=== PATIENT | male | born 1975 | race Caucasian/White ===

== ENCOUNTER 2018-07-21 12:39 | Emergency (ER) | payer SELFPAY ==
--- NOTE | 2018-07-21 12:58 | ER ---
Nurse's Notes [facility] Name: Laura Hernandez Age: 43 yrs Sex: Male : 1975 Arrival Date: 07/21/2018 Time: 12:41 Bed 24 Private MD: Diagnosis: Periapical abscess without sinus Presentation: 07/21 12:43 Presenting complaint: Patient states: swelling to right jaw, pt states "the is a spot aa5 inside my mouth and it's been hurting for about 3 days". Transition of care: patient was not received from another setting of care. Onset of symptoms was June 2018. Risk Assessment: Do you want to hurt yourself or someone else? Patient reports no desire to harm self or others. Initial Sepsis Screen: Does the patient meet any 2 criteria? No. Patient's initial sepsis screen is negative. Does the patient have a suspected source of infection? No. Patient's initial sepsis screen is negative. Care prior to arrival: None. 12:43 Method Of Arrival: Ambulatory aa5 12:43 Acuity: MARIA LUZ 4 aa5 Historical: - Allergies: 12:45 Pepto-Bismol; aa5 - PMHx: 12:45 None; aa5 - PSHx: 12:45 Broken Jaw; aa5 - Immunization history:: Flu vaccine is not up to date. - Social history:: Smoking status: Patient uses tobacco products, smokes one-half pack cigarettes per day. - Ebola Screening: : No symptoms or risks identified at this time. Screenin:01 Abuse screen: Denies threats or abuse. Denies injuries from another. Nutritional aj screening: No deficits noted. Tuberculosis screening: No symptoms or risk factors identified. Fall Risk None identified. Assessment: 13:01 General: Appears in no apparent distress. comfortable, Behavior is calm, cooperative, aj appropriate for age. Pain: Complains of pain in mouth. Neuro: Level of Consciousness is awake, alert, obeys commands, Oriented to person, place, time, situation, Appropriate for age. Respiratory: Airway is patent Respiratory effort is even, unlabored, Respiratory pattern is regular, symmetrical. EENT: Reports pain in mouth. Derm: Skin is intact, is healthy with good turgor, Skin is pink, warm \\T\\ dry. normal. Vital Signs: 12:45 BP 119 / 80; Pulse 94; Resp 16 S; Temp 98.3(TE); Pulse Ox 99% on R/A; Weight 90.72 kg aa5 (R); Height 5 ft. 9 in. (175.26 cm) (R); Pain 9/10; 12:45 Body Mass Index 29.53 (90.72 kg, 175.26 cm) aa5 ED Course: 12:41 Patient arrived in ED. as 12:43 Arm band placed on. aa5 12:45 Triage completed. aa5 12:47 Edith Barkley, RN is Primary Nurse. aj 12:48 Cierra Roy FNP-C is PHCP. kb 12:48 Magnus Wolf MD is Attending Physician. kb 13:01 Patient has correct armband on for positive identification. aj 13:01 No provider procedures requiring assistance completed. Patient did not have IV access aj during this emergency room visit. Administered Medications: 13:04 Drug: Clindamycin 300 mg Route: PO; aj 13:05 Follow up: Response: Medication administered at discharge. aj 13:04 Drug: [place] 5 mg-325 mg 1 tabs Route: PO; aj 13:05 Follow up: Response: Medication administered at discharge. aj Outcome: 12:57 Discharge ordered by . kb 13:01 Discharged to home ambulatory, with friend. aj 13:01 Condition: good 13:01 Discharge instructions given to patient, Instructed on discharge instructions, follow up and referral plans. medication usage, Demonstrated understanding of instructions, follow-up care, medications, Prescriptions given X 2. 13:05 Patient left the ED. aj Signatures: Cierra Roy FNP-C FNP-Edith Bauman, RN Annemarie Tapia Audri, RN RN aa
--- NOTE | 2018-07-21 12:58 | EDPHYS ---
Physician Documentation [facility] Name: Laura Hernandez Age: 43 yrs Sex: Male : 1975 Arrival Date: 07/21/2018 Time: 12:41 Bed 24 Private MD: ED Physician Magnus Wolf HPI: 07/21 13:04 This 43 yrs old Male presents to ER via Ambulatory with complaints of Facial kb Swelling. 13:05 The patient presents with pain, redness, swelling. The problem is located in the lower kb right third molar. Onset: The symptoms/episode began/occurred 2 day(s) ago. Duration: The symptoms are continuous. Modifying factors: The symptoms are alleviated by nothing, the symptoms are aggravated by nothing. Associated signs and symptoms: Pertinent positives: pain, redness in area, swelling. Severity of symptoms: At their worst the symptoms were mild, moderate, in the emergency department the symptoms are unchanged. The patient has not experienced similar symptoms in the past. The patient has not recently seen a physician. Historical: - Allergies: 12:45 Pepto-Bismol; aa5 - PMHx: 12:45 None; aa5 - PSHx: 12:45 Broken Jaw; aa5 - Immunization history:: Flu vaccine is not up to date. - Social history:: Smoking status: Patient uses tobacco products, smokes one-half pack cigarettes per day. - Ebola Screening: : No symptoms or risks identified at this time. ROS: 13:03 Constitutional: Negative for fever, chills, and weight loss, Cardiovascular: Negative kb for chest pain, palpitations, and edema, Respiratory: Negative for shortness of breath, cough, wheezing, and pleuritic chest pain, Abdomen/GI: Negative for abdominal pain, nausea, vomiting, diarrhea, and constipation, MS/Extremity: Negative for injury and deformity, Skin: Negative for injury, rash, and discoloration, Neuro: Negative for headache, weakness, numbness, tingling, and seizure. 13:03 ENT: Positive for dental pain. Exam: 13:03 Constitutional: This is a well developed, well nourished patient who is awake, alert, kb and in no acute distress. Head/Face: Normocephalic, atraumatic. Chest/axilla: Normal chest wall appearance and motion. Nontender with no deformity. No lesions are appreciated. Cardiovascular: Regular rate and rhythm with a normal S1 and S2. No gallops, murmurs, or rubs. Normal PMI, no JVD. No pulse deficits. Respiratory: Lungs have equal breath sounds bilaterally, clear to auscultation and percussion. No rales, rhonchi or wheezes noted. No increased work of breathing, no retractions or nasal flaring. Abdomen/GI: Soft, non-tender, with normal bowel sounds. No distension or tympany. No guarding or rebound. No evidence of tenderness throughout. Skin: Warm, dry with normal turgor. Normal color with no rashes, no lesions, and no evidence of cellulitis. MS/ Extremity: Pulses equal, no cyanosis. Neurovascular intact. Full, normal range of motion. Neuro: Awake and alert, GCS 15, oriented to person, place, time, and situation. Cranial nerves II-XII grossly intact. Motor strength 5/5 in all extremities. Sensory grossly intact. Cerebellar exam normal. Normal gait. 13:03 ENT: Dental exam: abscess, that is mild, gum swelling, pain. Vital Signs: 12:45 BP 119 / 80; Pulse 94; Resp 16 S; Temp 98.3(TE); Pulse Ox 99% on R/A; Weight 90.72 kg aa5 (R); Height 5 ft. 9 in. (175.26 cm) (R); Pain 9/10; 12:45 Body Mass Index 29.53 (90.72 kg, 175.26 cm) aa5 MDM: 12:49 Patient medically screened. kb 13:04 Data reviewed: vital signs, nurses notes. Data interpreted: Pulse oximetry: on room air kb is 99 %. Interpretation: normal. Counseling: I had a detailed discussion with the patient and/or guardian regarding: the historical points, exam findings, and any diagnostic results supporting the discharge/admit diagnosis, the need for outpatient follow up, a dentist, to return to the emergency department if symptoms worsen or persist or if there are any questions or concerns that arise at home. Administered Medications: 13:04 Drug: Clindamycin 300 mg Route: PO; aj 13:05 Follow up: Response: Medication administered at discharge. aj 13:04 Drug: [place] 5 mg-325 mg 1 tabs Route: PO; aj 13:05 Follow up: Response: Medication administered at discharge. aj Disposition: 07/22 12:05 Co-signature as Attending Physician, Magnus LANGE I agree with the assessment and carlyle plan of care. Disposition: 07/21/18 12:57 Discharged to Home. Impression: Periapical abscess without sinus. - Condition is Stable. - Discharge Instructions: Dental Pain, [id number], Dental Abscess, [id number]. - Prescriptions for Clindamycin HCl 300 mg Oral Capsule - take 1 capsule by ORAL route every 6 hours for 10 days; 40 capsule. Diclofenac Sodium 75 mg Oral Tablet, Delayed Release (E.C.) - take 1 tablet by ORAL route 2 times per day As needed; 30 tablet. - Medication Reconciliation Form, Thank You Letter, Antibiotic Education, Prescription Opioid Use form. - Follow up: Emergency Department; When: As needed; Reason: Trouble breathing, Worsening of condition. Follow up: Private Physician; When: 2 - 3 days; Reason: Recheck today's complaints, Continuance of care, Re-evaluation by your physician. Signatures: Cierra Roy, REJI-C SEO COORDINATOR-Edith Bauman, Magnus Serra RN, MD MD cha Calderon, Audri, RN RN aa5 Corrections: (The following items were deleted from the chart) 07/21 13:05 12:57 07/21/2018 12:57 Discharged to Home. Impression: Periapical abscess without aj sinus. Condition is Stable. Forms are Medication Reconciliation Form, Thank You Letter, Antibiotic Education, Prescription Opioid Use. Follow up: Emergency Department; When: As needed; Reason: Trouble breathing, Worsening of condition. Follow up: Private Physician; When: 2 - 3 days; Reason: Recheck today's complaints, Continuance of care, Re-evaluation by your physician. kb
[2018-07-21] MEDS ORDERED: CLINDAMYCIN HCL 150 MG CAP ONE (13:10)
[2018-07-21] MEDS ORDERED: HYDROCODONE/APAP 5/325 MG TAB ONE (13:10)
== END 2018-07-21 13:05 | disposition home or self-care (01) ==
LOC: ER 12:39
DX: K04.7 Periapical abscess without sinus (principal); F17.210 Nicotine dependence, cigarettes, uncomplicated
CPT/HCPCS: 99283

== ENCOUNTER 2018-07-24 21:09 | Emergency (ER) | payer SELFPAY ==
--- NOTE | 2018-07-24 21:30 | EDPHYS ---
Physician Documentation [facility] Name: Laura Hernandez Age: 43 yrs Sex: Male : 1975 Arrival Date: 07/24/2018 Time: 21:10 Bed 20 Private MD: ED Physician Magnus Wolf HPI: 07/24 21:25 This 43 yrs old Male presents to ER via EMS with complaints of Toothache. jr8 21:25 The patient presents with broken tooth/teeth, pain, swelling. Onset: The jr8 symptoms/episode began/occurred acutely, 3 day(s) ago. Duration: The symptoms are continuous. Modifying factors: The symptoms are alleviated by nothing, the symptoms are aggravated by air, chewing, talking. Associated signs and symptoms: The patient has no apparent associated signs or symptoms. Severity of symptoms: At their worst the symptoms were moderate, in the emergency department the symptoms are unchanged. The patient has experienced a previous episode. The patient has not recently seen a physician. Patient seen two days ago for dental infection. Was arrested tonight and wanted EMS called for increased pain due to dental infection . Historical: - Allergies: 21:15 Pepto-Bismol; fc - Home Meds: 21:15 None [Active]; fc - PMHx: 21:15 None; fc - PSHx: 21:15 mouth surg; knee surg; leg surg; fc - Immunization history:: Last tetanus immunization: up to date. - Social history:: Smoking status: Patient uses tobacco products, smokes one-half pack cigarettes per day, Patient/guardian denies using alcohol, street drugs. - Ebola Screening: : Patient negative for fever greater than or equal to 101.5 degrees Fahrenheit, and additional compatible Ebola Virus Disease symptoms Patient denies exposure to infectious person Patient denies travel to an Ebola-affected area in the 21 days before illness onset. ROS: 21:25 Eyes: Negative for injury, pain, redness, and discharge, Neck: Negative for injury, jr8 pain, and swelling, Cardiovascular: Negative for chest pain, palpitations, and edema, Respiratory: Negative for shortness of breath, cough, wheezing, and pleuritic chest pain, Abdomen/GI: Negative for abdominal pain, nausea, vomiting, diarrhea, and constipation, Back: Negative for injury and pain, MS/Extremity: Negative for injury and deformity, Skin: Negative for injury, rash, and discoloration, Neuro: Negative for headache, weakness, numbness, tingling, and seizure. 21:25 ENT: Positive for dental pain, Gum pain Exam: 21:25 Eyes: Pupils equal round and reactive to light, extra-ocular motions intact. Lids and jr8 lashes normal. Conjunctiva and sclera are non-icteric and not injected. Cornea within normal limits. Periorbital areas with no swelling, redness, or edema. Neck: Trachea midline, no thyromegaly or masses palpated, and no cervical lymphadenopathy. Supple, full range of motion without nuchal rigidity, or vertebral point tenderness. No Meningismus. Cardiovascular: Regular rate and rhythm with a normal S1 and S2. No gallops, murmurs, or rubs. Normal PMI, no JVD. No pulse deficits. Respiratory: Lungs have equal breath sounds bilaterally, clear to auscultation and percussion. No rales, rhonchi or wheezes noted. No increased work of breathing, no retractions or nasal flaring. Abdomen/GI: Soft, non-tender, with normal bowel sounds. No distension or tympany. No guarding or rebound. No evidence of tenderness throughout. Back: No spinal tenderness. No costovertebral tenderness. Full range of motion. Skin: Warm, dry with normal turgor. Normal color with no rashes, no lesions, and no evidence of cellulitis. MS/ Extremity: Pulses equal, no cyanosis. Neurovascular intact. Full, normal range of motion. Neuro: Awake and alert, GCS 15, oriented to person, place, time, and situation. Cranial nerves II-XII grossly intact. Motor strength 5/5 in all extremities. Sensory grossly intact. Cerebellar exam normal. Normal gait. 21:25 ENT: Exam is negative for earache, ear discharge, TM abnormalities, nasal discharge, Mouth: Lips: moist, Oral mucosa: pink and intact, moist, Gums: pink, Tongue: is moist, abscess, is not appreciated, Posterior pharynx: Airway: patent, Tonsils: are normal in appearance, Uvula: midline, swelling, is not appreciated, erythema, is not appreciated, Dental exam: Patient has mild erythema with ulceration to gum line near 2nd molar. Broken second tooth present. Mild facial swelling adjacent to infection . Vital Signs: 21:06 BP 122 / 57; Pulse 95; Resp 18; Temp 98.2(O); Pulse Ox 99% on R/A; Weight 90.72 kg (R); fc Height 5 ft. 9 in. (175.26 cm) (R); Pain 5/10; 21:40 BP 121 / 65; Pulse 70; Resp 17; Pulse Ox 99% ; rr5 21:06 Body Mass Index 29.53 (90.72 kg, 175.26 cm) MDM: 21:24 Patient medically screened. jr8 21:25 Data reviewed: vital signs, nurses notes, and as a result, I will discharge patient. jr8 Data interpreted: Pulse oximetry: on room air is 99 %. Interpretation: normal. Counseling: I had a detailed discussion with the patient and/or guardian regarding: the historical points, exam findings, and any diagnostic results supporting the discharge/admit diagnosis, the need for outpatient follow up, a dentist, to return to the emergency department if symptoms worsen or persist or if there are any questions or concerns that arise at home. Administered Medications: 21:25 Drug: Clindamycin 600 mg {Note: right gluteus 300mg IM, left gluteus 300 mg IM .} rr5 Route: IM; Site: left gluteus; 21:46 Follow up: Response: Medication administered at discharge. rr5 21:26 Drug: TORadol - Ketorolac 15 mg Route: IM; Site: right deltoid; rr5 21:45 Follow up: Response: Medication administered at discharge. rr5 Disposition: 07/24/18 21:29 Discharged to Home. Impression: Periapical abscess without sinus. - Condition is Stable. - Discharge Instructions: Dental Abscess, Dental Pain. - Medication Reconciliation Form, Thank You Letter, Antibiotic Education, Prescription Opioid Use form. - Follow up: Private Physician; When: 2 - 3 days; Reason: Recheck today's complaints, Continuance of care, Re-evaluation by your physician. - Problem is new. - Symptoms have improved. - Notes: Continue ABX at home as prescribed the other day Addendum: 07/28/2018 10:57 Co-signature as Attending Physician, Magnus Wolf MD I agree with the assessment and c swanson plan of care. Signatures: Magnus Wolf MD MD cha Chretien, Felicia, RN RN Maurilio Morrow PA PA jr8 Haja Tristan RN RN rr5 Corrections: (The following items were deleted from the chart) 07/24 21:46 21:29 07/24/2018 21:29 Discharged to Home. Impression: Periapical abscess without rr5 sinus. Condition is Stable. Forms are Medication Reconciliation Form, Thank You Letter, Antibiotic Education, Prescription Opioid Use. Follow up: Private Physician; When: 2 - 3 days; Reason: Recheck today's complaints, Continuance of care, Re-evaluation by your physician. Problem is new. Symptoms have improved. jr8
--- NOTE | 2018-07-24 21:30 | ER ---
Nurse's Notes [facility] Name: Laura Hernandez Age: 43 yrs Sex: Male : 1975 Arrival Date: 07/24/2018 Time: 21:10 Bed 20 Private MD: Diagnosis: Periapical abscess without sinus Presentation: 07/24 21:06 Presenting complaint: Patient states: that he is having right sided facial pain and jaw fc pain. On antibiotics that he was given here last week. Transition of care: patient was not received from another setting of care. Onset of symptoms was July 14, 2018. Risk Assessment: Do you want to hurt yourself or someone else? Patient reports no desire to harm self or others. Initial Sepsis Screen: Does the patient meet any 2 criteria? HR > 90 bpm. No. Patient's initial sepsis screen is negative. Does the patient have a suspected source of infection? No. Patient's initial sepsis screen is negative. Care prior to arrival: None. 21:06 Method Of Arrival: EMS: [facility] 21:06 Acuity: MARIA LUZ 4 fc Historical: - Allergies: 21:15 Pepto-Bismol; fc - Home Meds: 21:15 None [Active]; fc - PMHx: 21:15 None; fc - PSHx: 21:15 mouth surg; knee surg; leg surg; fc - Immunization history:: Last tetanus immunization: up to date. - Social history:: Smoking status: Patient uses tobacco products, smokes one-half pack cigarettes per day, Patient/guardian denies using alcohol, street drugs. - Ebola Screening: : Patient negative for fever greater than or equal to 101.5 degrees Fahrenheit, and additional compatible Ebola Virus Disease symptoms Patient denies exposure to infectious person Patient denies travel to an Ebola-affected area in the 21 days before illness onset. Screenin:06 Abuse screen: Denies threats or abuse. Nutritional screening: No deficits noted. fc Tuberculosis screening: No symptoms or risk factors identified. Fall Risk None identified. Assessment: 21:10 General: Appears in no apparent distress. uncomfortable, Behavior is calm, cooperative, rr5 appropriate for age. 21:10 Pain: Complains of pain in right tooth Pain does not radiate. Pain radiates to right rr5 jaw Pain currently is 5 out of 10 on a pain scale. Quality of pain is described as aching, Pain began gradually, Is intermittent. Neuro: Level of Consciousness is awake, alert, obeys commands, Oriented to person, place, time, situation, Appropriate for age. Cardiovascular: Capillary refill < 3 seconds Patient's skin is warm and dry. Respiratory: Airway is patent Respiratory effort is even, unlabored, Respiratory pattern is regular, symmetrical. GI: No signs and/or symptoms were reported involving the gastrointestinal system. : No signs and/or symptoms were reported regarding the genitourinary system. EENT: abscess right tooth. Reports pain in right tooth. Derm: No signs and/or symptoms reported regarding the dermatologic system. Musculoskeletal: Capillary refill < 3 seconds, Range of motion: intact in all extremities. 21:41 Reassessment: Patient appears in no apparent distress at this time. Patient is alert, rr5 oriented x 3, equal unlabored respirations, skin warm/dry/pink. discharge instruction given without complaints made. escorted by MCKAYLA. Vital Signs: 21:06 BP 122 / 57; Pulse 95; Resp 18; Temp 98.2(O); Pulse Ox 99% on R/A; Weight 90.72 kg (R); fc Height 5 ft. 9 in. (175.26 cm) (R); Pain 5/10; 21:40 BP 121 / 65; Pulse 70; Resp 17; Pulse Ox 99% ; rr5 21:06 Body Mass Index 29.53 (90.72 kg, 175.26 cm) ED Course: 21:06 Arm band placed on Patient placed in an exam room, on a stretcher. fc 21:06 Patient has correct armband on for positive identification. Placed in gown. Bed in low fc position. 21:06 No provider procedures requiring assistance completed. fc 21:10 Patient arrived in ED. fc 21:12 Triage completed. fc 21:24 Maurilio Li PA is PHCP. jr8 21:24 Magnus Wolf MD is Attending Physician. jr8 21:30 Haja Tristan RN is Primary Nurse. rr5 21:44 Patient did not have IV access during this emergency room visit. IV discontinued. rr5 Administered Medications: 21:25 Drug: Clindamycin 600 mg {Note: right gluteus 300mg IM, left gluteus 300 mg IM .} rr5 Route: IM; Site: left gluteus; 21:46 Follow up: Response: Medication administered at discharge. rr5 21:26 Drug: TORadol - Ketorolac 15 mg Route: IM; Site: right deltoid; rr5 21:45 Follow up: Response: Medication administered at discharge. rr5 Outcome: 21:29 Discharge ordered by MD. damon 21:44 Discharged to Law Enforcement rr5 21:44 Condition: stable 21:44 Discharge instructions given to patient, Instructed on discharge instructions, follow up and referral plans. Demonstrated understanding of instructions, follow-up care. 21:46 Patient left the ED. rr5 Signatures: Juanita Damon RN RN Maurilio Li PA PA jr8 Haja Tristan RN RN rr5
[2018-07-24] MEDS ORDERED: KETOROLAC 30 MG/ML INJ ONE (21:38)
[2018-07-24] MEDS ORDERED: CLINDAMYCIN IV 150 MG/ML (4 mL) VIAL ONE (21:40)
== END 2018-07-24 21:46 | disposition home or self-care (01) ==
LOC: ER 21:09
DX: K04.7 Periapical abscess without sinus (principal); F17.210 Nicotine dependence, cigarettes, uncomplicated; Z88.8 Allergy status to other drugs, medicaments and biological substances
CPT/HCPCS: 96372; 99283; S0077

== ENCOUNTER 2018-10-11 05:10 | Emergency (ER) | payer SELFPAY ==
--- NOTE | 2018-10-11 06:33 | ER ---
Nurse's Notes [facility] Name: Laura Hernandez Age: 43 yrs Sex: Male : 1975 Arrival Date: 10/11/2018 Time: 05:12 Bed 18 Private MD: Diagnosis: Fracture of ramus of mandible Presentation: 10/11 05:24 Presenting complaint: Patient states: Patient states they were roughhousing with their eb1 brother and felt like they had broken their jaw. Patient says their mouth feels off center when they bite down. Care prior to arrival: None. Mechanism of Injury: Patient states they were roughhousing with their brother, and is not aware of how his jaw became injured. 05:24 Acuity: MARIA LUZ 4 eb1 05:24 Method Of Arrival: Ambulatory eb1 05:43 Transition of care: patient was not received from another setting of care. Onset of eb1 symptoms was October 11, 2018. Initial Sepsis Screen: Does the patient meet any 2 criteria? No. Patient's initial sepsis screen is negative. Does the patient have a suspected source of infection? No. Patient's initial sepsis screen is negative. 05:43 Risk Assessment: Do you want to hurt yourself or someone else? Patient reports no eb1 desire to harm self or others. Triage Assessment: 05:33 General: Appears in no apparent distress. comfortable, slender, well groomed, well eb1 developed, well nourished, Behavior is calm, cooperative, appropriate for age. Pain: Complains of pain in left jaw Pain does not radiate. Pain currently is 5 out of 10 on a pain scale. EENT: No deficits noted. No signs and/or symptoms were reported regarding the EENT system. Neuro: No deficits noted. Cardiovascular: No deficits noted. Respiratory: No deficits noted. GI: No deficits noted. No signs and/or symptoms were reported involving the gastrointestinal system. : No deficits noted. No signs and/or symptoms were reported regarding the genitourinary system. Derm: No deficits noted. No signs and/or symptoms reported regarding the dermatologic system. Musculoskeletal: No deficits noted. No signs and/or symptoms reported regarding the musculoskeletal system. Historical: - Allergies: 05:39 Pepto-Bismol; eb1 - Home Meds: 05:39 None [Active]; eb1 - PMHx: 05:39 None; eb1 - PSHx: 05:39 jaw sx; eb1 - Immunization history:: Adult Immunizations up to date. - Social history:: Smoking status: Patient uses tobacco products, smokes one-half pack cigarettes per day. - Ebola Screening: : Patient negative for fever greater than or equal to 101.5 degrees Fahrenheit, and additional compatible Ebola Virus Disease symptoms Patient denies exposure to infectious person Patient denies travel to an Ebola-affected area in the 21 days before illness onset. Screenin:40 Abuse screen: Denies threats or abuse. Denies injuries from another. Nutritional eb1 screening: No deficits noted. Tuberculosis screening: No symptoms or risk factors identified. Fall Risk None identified. Assessment: 05:35 General: Appears in no apparent distress. comfortable, slender, well groomed, well eb1 developed, well nourished, Behavior is calm, cooperative, appropriate for age. Pain: Complains of pain in left jaw Pain does not radiate. Pain currently is 5 out of 10 on a pain scale. Neuro: No deficits noted. Cardiovascular: No deficits noted. Respiratory: No deficits noted. GI: No deficits noted. No signs and/or symptoms were reported involving the gastrointestinal system. : No deficits noted. No signs and/or symptoms were reported regarding the genitourinary system. EENT: No deficits noted. No signs and/or symptoms were reported regarding the EENT system. Derm: No deficits noted. No signs and/or symptoms reported regarding the dermatologic system. Musculoskeletal: No deficits noted. No signs and/or symptoms reported regarding the musculoskeletal system. 07:20 Reassessment: Called Dr. Ocampo (radiologist) about x-ray reading result, left voice aa5 mail. . 07:30 Reassessment: Pt sitting up in bed watching TV. Awaiting EMS for transfer, pt notified aa5 of wait time, pt verbalized understanding. Swelling noted to left jaw, pt rates pain 4/10 on a pain scale. . 08:04 Reassessment: Patient is alert, oriented x 3, equal unlabored respirations, skin aa5 warm/dry/pink. Vital Signs: 05:34 BP 151 / 98; Pulse 105; Resp 18; Temp 98.6(O); Pulse Ox 97% ; Pain 4/10; eb1 06:22 BP 143 / 89; Pulse 101; Resp 20; Temp 98.8(O); Pulse Ox 100% ; Pain 7/10; eb1 07:40 BP 145 / 85; Pulse 99; Resp 18 S; Temp 98.0(TE); Pulse Ox 100% on R/A; Pain 4/10; aa5 ED Course: 05:12 Patient arrived in ED. ds1 05:31 Yo Bustamante MD is Attending Physician. gs 05:31 Triage completed. eb1 05:42 Arm band placed on left wrist. eb1 05:43 Patient has correct armband on for positive identification. Bed in low position. eb1 06:01 Mandible (<4 Views) XRAY In Process Unspecified. EDMS 06:14 initiated a transfer with Aline at the [facility] transfer center. mw2 06:19 connected the [facility] doctor sales correspondent for [facility] with Dr. Bustamante for patient transfer mw2 consultation. 06:[address] ED doctor Dr. Grady sales correspondent for [facility] with Dr. Bustamante for mw2 patient transfer consultation. 06:28 administrative approval given by Aline Gusman from the [facility] transfer center/ Patient has mw2 been accepted to [facility] ER by Johnathan Mcgee. Report to be called to [phone]. 07:00 Report received from THIAGO Cabrales. aa5 07:04 Lisa Muñoz, RN is Primary Nurse. aa5 08:04 No provider procedures requiring assistance completed. Patient transferred, IV remains aa5 in place. 08:23 Primary Nurse role handed off by Lisa Muñoz, RN aa5 Administered Medications: 06:28 Drug: Lortab Liquid 15 ml Route: PO; eb1 06:48 Follow up: Response: Pain is decreased eb1 Outcome: 06:33 ER care complete, transfer ordered by . gs 08:32 Patient left the ED. aa5 08:32 Transferred by ground EMS to [facility], Transfer form completed. X-rays sent w/ patient. Note: Report given to Emiliano with [facility] 08:32 Condition: stable 08:32 Instructed on the need for transfer, Demonstrated understanding of instructions. 08:33 Patient left the ED. aa5 Signatures: Dispatcher [employer] EDIN Odilia Marcos ds1 Lisa Muñoz RN RN aa5 Yo Bustamante MD MD Gricelda Freedman mw2 Samra Billings RN RN eb1 Corrections: (The following items were deleted from the chart) 08:32 08:04 Transferred by ground EMS to [facility], Transfer form aa5 completed. X-rays sent w/ patient. Note: Report given to Helen with [facility] aa5 08:04 Condition: stable aa5 aa5 08:04 Instructed on the need for transfer, Demonstrated understanding of instructions, aa5 aa5 08:06 Patient left the ED. aa5 aa5
--- NOTE | 2018-10-11 06:33 | EDPHYS ---
Physician Documentation [facility] Name: Laura Hernandez Age: 43 yrs Sex: Male : 1975 Arrival Date: 10/11/2018 Time: 05:12 Bed 18 Private MD: ED Physician Yo Bustamante HPI: 10/11 05:58 This 43 yrs old Male presents to ER via Ambulatory with complaints of Jaw gs Injury. 05:58 The patient presents with pain. The problem is located in the face. The problem is gs located in the left jaw. Onset: The symptoms/episode began/occurred acutely, this morning. Duration: The symptoms are continuous. Modifying factors: the symptoms are aggravated by chewing. Associated signs and symptoms: Pertinent negatives: dysphagia. Severity of symptoms: At their worst the symptoms were moderate, in the emergency department the symptoms are unchanged. The patient has experienced a previous episode. says got hit in jaw. Historical: - Allergies: 05:39 Pepto-Bismol; eb1 - Home Meds: 05:39 None [Active]; eb1 - PMHx: 05:39 None; eb1 - PSHx: 05:39 jaw sx; eb1 - Immunization history:: Adult Immunizations up to date. - Social history:: Smoking status: Patient uses tobacco products, smokes one-half pack cigarettes per day. - Ebola Screening: : Patient negative for fever greater than or equal to 101.5 degrees Fahrenheit, and additional compatible Ebola Virus Disease symptoms Patient denies exposure to infectious person Patient denies travel to an Ebola-affected area in the 21 days before illness onset. ROS: 05:58 All other systems are negative. gs Exam: 05:58 Head/Face: Normocephalic, atraumatic. Eyes: Pupils equal round and reactive to light, gs extra-ocular motions intact. Lids and lashes normal. Conjunctiva and sclera are non-icteric and not injected. Cornea within normal limits. Periorbital areas with no swelling, redness, or edema. Neck: Trachea midline, no thyromegaly or masses palpated, and no cervical lymphadenopathy. Supple, full range of motion without nuchal rigidity, or vertebral point tenderness. No Meningismus. Chest/axilla: Normal chest wall appearance and motion. Nontender with no deformity. No lesions are appreciated. Cardiovascular: Regular rate and rhythm with a normal S1 and S2. No gallops, murmurs, or rubs. Normal PMI, no JVD. No pulse deficits. Respiratory: Lungs have equal breath sounds bilaterally, clear to auscultation and percussion. No rales, rhonchi or wheezes noted. No increased work of breathing, no retractions or nasal flaring. Abdomen/GI: Soft, non-tender, with normal bowel sounds. No distension or tympany. No guarding or rebound. No evidence of tenderness throughout. Back: No spinal tenderness. No costovertebral tenderness. Full range of motion. Skin: Warm, dry with normal turgor. Normal color with no rashes, no lesions, and no evidence of cellulitis. MS/ Extremity: Pulses equal, no cyanosis. Neurovascular intact. Full, normal range of motion. Neuro: Awake and alert, GCS 15, oriented to person, place, time, and situation. Cranial nerves II-XII grossly intact. Motor strength 5/5 in all extremities. Sensory grossly intact. Cerebellar exam normal. Normal gait. 05:58 Constitutional: The patient appears alert, awake. 05:58 ENT: Dental exam: pain, that is moderate, specifically in the left jaw, mild trismus. Vital Signs: 05:34 BP 151 / 98; Pulse 105; Resp 18; Temp 98.6(O); Pulse Ox 97% ; Pain 4/10; eb1 06:22 BP 143 / 89; Pulse 101; Resp 20; Temp 98.8(O); Pulse Ox 100% ; Pain 7/10; eb1 07:40 BP 145 / 85; Pulse 99; Resp 18 S; Temp 98.0(TE); Pulse Ox 100% on R/A; Pain 4/10; aa5 MDM: 05:31 Patient medically screened. 10/11 05:36 Order name: Mandible (<4 Views) XRAY 10/11 06:27 Order name: NPO; Complete Time: 06:31 Administered Medications: 06:28 Drug: Lortab Liquid 15 ml Route: PO; eb1 06:48 Follow up: Response: Pain is decreased eb1 Disposition: 10/11/18 06:33 Transfer ordered to [facility]. Diagnosis is Fracture of ramus of mandible. - Reason for transfer: Higher level of care. - Accepting physician is fantasma. - Condition is Stable. - Problem is new. - Symptoms have improved. Signatures: Dispatcher [employer] EDLisa Dowling, RN RN aa5 Yo Bustamante MD MD gs Basinger, Emily RN RN eb1 Corrections: (The following items were deleted from the chart) 08:06 06:33 10/11/2018 06:33 Transfer ordered to [facility]. Diagnosis is Fracture of aa5 ramus of mandible. Reason for transfer: Higher level of care. Accepting physician is fantasma. Condition is Stable. Problem is new. Symptoms have improved. 08:33 08:06 10/11/2018 06:33 Transfer ordered to [facility]. Diagnosis is Fracture of aa5 ramus of mandible. Reason for transfer: Higher level of care. Accepting physician is fantasma. Condition is Stable. Problem is new. Symptoms have improved. aa5
[2018-10-11] MEDS ORDERED: HYDROCOD 2.5mg-ACETAMIN 108mg/5mL Soln ONE (06:40)
--- NOTE | 2018-10-11 07:30 | RAD REPORT ---
EXAM DESCRIPTION: RAD - Mandible <4 Views - 10/11/2018 6:00 am CLINICAL HISTORY: Mandible pain, trauma COMPARISON: None. TECHNIQUE: AP Walker's, right and left axial lateral and PA views were obtained. FINDINGS: Right-sided mandible is intact with normally positioned mandibular condyle. Left mandibula r condyles is displaced anteriorly. There is an oblique fracture of the left-side mandible approximat lea midportion of the ramus. There is 1-2 mm of lateral displacement of the superior fracture fragmen t. Hardware is in place from prior mandible fracture repair. IMPRESSION: Left mandibular ramus fracture with anterior displacement of the condyle onto the articu lar eminence.
== END 2018-10-11 08:33 | disposition short-term general hospital (02) ==
LOC: ER 05:10
DX: S02.642A Fracture of ramus of left mandible, initial encounter for closed fracture (principal); F17.210 Nicotine dependence, cigarettes, uncomplicated; W50.0XXA Accidental hit or strike by another person, initial encounter; Y93.89 Activity, other specified; Y92.9 Unspecified place or not applicable
CPT/HCPCS: 70100; 99285

== ENCOUNTER 2020-05-23 06:42 | Emergency (ER) | payer SELFPAY ==
--- OUTSIDE RECORDS SUMMARY | 2020-05-23 06:45 | XMS REPORT | Continuity of Care Document ---
:1975 Author Organization [facility] t Address [address] [place] [address] Care Team Providers Name Role Phone Danilo LANGE Attending Clinician Problems This patient has no known problems. Allergies, Adverse Reactions, Alerts This patient has no known allergies or adverse reactions. Medications This patient has no known medications. Procedures This patient has no known procedures. Encounters Start End Encounter Admission Attending Care Care Encounter Source Date/Time Date/Time Type Type Clinicians Facility Department ID 2018-11-11 2018-12-03 Office Santos Carrasco [facility] [id number] 16:10:03 12:11:53 Visit SPECIALTY [id number] CARE [id number] CENTER AT [id number] [address] [place] [address] Results This patient has no known results.
--- NOTE | 2020-05-23 08:28 | EDPHYS ---
Physician Documentation [facility] Name: Laura Hernandez Age: 45 yrs Sex: Male : 1975 Arrival Date: 05/23/2020 Time: 06:47 Bed 25 Private MD: Magnus Taylor HPI: 05/23 08:20 This 45 yrs old Male presents to ER via Ambulatory with complaints of Gum carlyle Pain. 08:20 This 45 yrs old Male presents to ER via Ambulatory with complaints of Gum carlyle Pain. 08:20 The patient or guardian reports pain, swelling. The complaints affect the left jaw. carlyle Onset: The symptoms/episode began/occurred 3 day(s) ago. Associated signs and symptoms: The patient has no apparent associated signs or symptoms. Severity of symptoms: At their worst the symptoms were moderate. The patient has not experienced similar symptoms in the past. Historical: - Allergies: 07:05 Pepto-Bismol; bb - Home Meds: 07:05 None [Active]; bb - PMHx: 07:05 None; bb - PSHx: 07:05 None; bb - Immunization history:: Adult Immunizations up to date. - Social history:: Smoking status: Patient reports the use of cigarette tobacco products, smokes one-half pack cigarettes per day. ROS: 08:20 Constitutional: Negative for fever, chills, and weight loss, Eyes: Negative for injury, carlyle pain, redness, and discharge, Neck: Negative for injury, pain, and swelling, Cardiovascular: Negative for chest pain, palpitations, and edema, Respiratory: Negative for shortness of breath, cough, wheezing, and pleuritic chest pain, Abdomen/GI: Negative for abdominal pain, nausea, vomiting, diarrhea, and constipation, Back: Negative for injury and pain, : Negative for injury, bleeding, discharge, and swelling, MS/Extremity: Negative for injury and deformity, Skin: Negative for injury, rash, and discoloration, Neuro: Negative for headache, weakness, numbness, tingling, and seizure, Psych: Negative for depression, anxiety, suicide ideation, homicidal ideation, and hallucinations, Allergy/Immunology: Negative for hives, rash, and allergies, Endocrine: Negative for neck swelling, polydipsia, polyuria, polyphagia, and marked weight changes, Hematologic/Lymphatic: Negative for swollen nodes, abnormal bleeding, and unusual bruising. 08:20 ENT: Positive for Teeth pain Exam: 08:20 Constitutional: This is a well developed, well nourished patient who is awake, alert, carlyle and in no acute distress. Eyes: Pupils equal round and reactive to light, extra-ocular motions intact. Lids and lashes normal. Conjunctiva and sclera are non-icteric and not injected. Cornea within normal limits. Periorbital areas with no swelling, redness, or edema. Neck: Trachea midline, no thyromegaly or masses palpated, and no cervical lymphadenopathy. Supple, full range of motion without nuchal rigidity, or vertebral point tenderness. No Meningismus. Chest/axilla: Normal chest wall appearance and motion. Nontender with no deformity. No lesions are appreciated. Cardiovascular: Regular rate and rhythm with a normal S1 and S2. No gallops, murmurs, or rubs. Normal PMI, no JVD. No pulse deficits. Respiratory: Lungs have equal breath sounds bilaterally, clear to auscultation and percussion. No rales, rhonchi or wheezes noted. No increased work of breathing, no retractions or nasal flaring. Abdomen/GI: Soft, non-tender, with normal bowel sounds. No distension or tympany. No guarding or rebound. No evidence of tenderness throughout. Back: No spinal tenderness. No costovertebral tenderness. Full range of motion. Male : Normal genitalia with no discharge or lesions. Skin: Warm, dry with normal turgor. Normal color with no rashes, no lesions, and no evidence of cellulitis. MS/ Extremity: Pulses equal, no cyanosis. Neurovascular intact. Full, normal range of motion. Neuro: Awake and alert, GCS 15, oriented to person, place, time, and situation. Cranial nerves II-XII grossly intact. Motor strength 5/5 in all extremities. Sensory grossly intact. Cerebellar exam normal. Normal gait. Psych: Awake, alert, with orientation to person, place and time. Behavior, mood, and affect are within normal limits. 08:20 Head/face: Noted is swelling, tenderness, that is mild, of the left jaw. 08:20 ENT: Mouth: Gums: noted to have cellulitis, reddened, swollen, on the lower left first molar, Dental exam: dental caries, fractured teeth are noted, gum swelling, that is moderate, specifically in the lower left first molar (#19), pain. Vital Signs: 07:03 BP 152 / 96; Pulse 83; Resp 16 S; Temp 98(O); Pulse Ox 100% on R/A; Weight 90.72 kg bb (R); Height 5 ft. 9 in. (175.26 cm) (R); Pain 8/10; 08:52 BP 143 / 93; Pulse 82; Resp 17; Pulse Ox 100% on R/A; tw2 07:03 Body Mass Index 29.53 (90.72 kg, 175.26 cm) bb Straughn Coma Score: 08:20 Eye Response: spontaneous(4). Verbal Response: oriented(5). Motor Response: obeys carlyle commands(6). Total: 15. 08:24 Eye Response: spontaneous(4). Verbal Response: oriented(5). Motor Response: obeys carlyle commands(6). Total: 15. MDM: 07:25 Patient medically screened. carlyle 08:24 Data reviewed: vital signs, nurses notes. Data interpreted: physical director: rate is 83 carlyle beats/min, rhythm is regular, Pulse oximetry: on room air. Counseling: I had a detailed discussion with the patient and/or guardian regarding: the historical points, exam findings, and any diagnostic results supporting the discharge/admit diagnosis, the need for outpatient follow up, for definitive care, a dentist, an oral maxilofacial specialist. Administered Medications: 08:31 Drug: Amoxicillin 500 mg Route: PO; tw2 08:51 Follow up: Response: No adverse reaction tw2 08:31 Drug: Viscous Lidocaine Liquid (4 %) 5 ml Route: Mucous Membrane; tw2 08:31 Drug: Berne 10 mg-325 mg 1 tabs {Note: RASS 0.} Route: PO; tw2 08:51 Follow up: Response: No adverse reaction; Pain is unchanged, physician notified; RASS: tw2 Alert and Calm (0) Disposition: 05/23/20 08:27 Discharged to Home. Impression: Dental caries - PAIN, Gingivitis and periodontal diseases. - Condition is Stable. - Discharge Instructions: Dental Pain, Dental Pain, [id number]. - Prescriptions for Lidocaine Viscous - Apply to affected area 5 milliliter by ORAL route 5 times per day; 60 milliliter. Amoxicillin 500 mg Oral Capsule - take 1 capsule by ORAL route every 8 hours for 10 days; 30 tablet. Ibuprofen 600 mg Oral Tablet - take 1 tablet by ORAL route every 6 hours As needed take with food; 30 tablet. - Medication Reconciliation Form, Thank You Letter, Antibiotic Education, Prescription Opioid Use, Work release form form. - Follow up: Private Physician; When: 2 - 3 days; Reason: Recheck today's complaints, Continuance of care, Re-evaluation by your physician. Follow up: Steve Jauregui DDS; When: Tomorrow; Reason: Recheck today's complaints, Re-evaluation by your physician. - Problem is new. - Symptoms have improved. Signatures: Magnus Wolf MD MD cha Ballard, Brenda RN RN bb Tianna Hartman RN RN tw2 Corrections: (The following items were deleted from the chart) 08:52 08:27 05/23/2020 08:27 Discharged to Home. Impression: Dental caries - PAIN; Gingivitis tw2 and periodontal diseases. Condition is Stable. Forms are Work release form, Medication Reconciliation Form, Thank You Letter, Antibiotic Education, Prescription Opioid Use. Follow up: Private Physician; When: 2 - 3 days; Reason: Recheck today's complaints, Continuance of care, Re-evaluation by your physician. Follow up: Steve Jauregui; When: Tomorrow; Reason: Recheck today's complaints, Re-evaluation by your physician. Problem is new. Symptoms have improved. carlyle
--- NOTE | 2020-05-23 08:28 | ER ---
Nurse's Notes [facility] Name: Laura Hernandez Age: 45 yrs Sex: Male : 1975 Arrival Date: 05/23/2020 Time: 06:47 Bed 25 Private MD: Diagnosis: Dental caries-PAIN;Gingivitis and periodontal diseases Presentation: 05/23 07:03 Chief complaint: Patient states: he is having left lower jaw/tooth pain x 2 days now bb radiating down his neck. Coronavirus screen: At this time, the client does not indicate any symptoms associated with coronavirus-19. Ebola Screen: No symptoms or risks identified at this time. Initial Sepsis Screen: Does the patient meet any 2 criteria? No. Patient's initial sepsis screen is negative. Does the patient have a suspected source of infection? No. Patient's initial sepsis screen is negative. Risk Assessment: Do you want to hurt yourself or someone else? Patient reports no desire to harm self or others. Onset of symptoms was May 21, 2020. 07:03 Method Of Arrival: Ambulatory bb 07:03 Acuity: MARIA LUZ 4 bb Triage Assessment: 07:05 General: Appears in no apparent distress. Behavior is calm, cooperative. Pain: bb Complains of pain in left lower jaw Pain currently is 8 out of 10 on a pain scale. Neuro: Level of Consciousness is awake, alert, obeys commands, Oriented to person, place, time, situation. Historical: - Allergies: 07:05 Pepto-Bismol; bb - Home Meds: 07:05 None [Active]; bb - PMHx: 07:05 None; bb - PSHx: 07:05 None; bb - Immunization history:: Adult Immunizations up to date. - Social history:: Smoking status: Patient reports the use of cigarette tobacco products, smokes one-half pack cigarettes per day. Screenin:06 Abuse screen: Denies threats or abuse. Nutritional screening: No deficits noted. tw2 Tuberculosis screening: No symptoms or risk factors identified. Fall Risk None identified. Assessment: 08:52 Reassessment: Patient appears in no apparent distress at this time. No changes from tw2 previously documented assessment. Patient and/or family updated on plan of care and expected duration. Pain level reassessed. Patient is alert, oriented x 3, equal unlabored respirations, skin warm/dry/pink. Vital Signs: 07:03 BP 152 / 96; Pulse 83; Resp 16 S; Temp 98(O); Pulse Ox 100% on R/A; Weight 90.72 kg bb (R); Height 5 ft. 9 in. (175.26 cm) (R); Pain 8/10; 08:52 BP 143 / 93; Pulse 82; Resp 17; Pulse Ox 100% on R/A; tw2 07:03 Body Mass Index 29.53 (90.72 kg, 175.26 cm) Covel Coma Score: 08:20 Eye Response: spontaneous(4). Verbal Response: oriented(5). Motor Response: obeys carlyle commands(6). Total: 15. 08:24 Eye Response: spontaneous(4). Verbal Response: oriented(5). Motor Response: obeys carlyle commands(6). Total: 15. ED Course: 06:47 Patient arrived in ED. cl3 06:55 Bed in low position. Call light in reach. Pulse ox on. NIBP on. tw2 07:04 Triage completed. bb 07:05 Arm band placed on Patient placed in an exam room, on a stretcher, on pulse oximetry. bb 07:06 Tianna Hartman, THIAGO is Primary Nurse. tw2 07:25 Magnus Wolf MD is Attending Physician. carlyle 08:25 Steve Jauregui DDS is Referral Physician. carlyle 08:52 No provider procedures requiring assistance completed. Patient did not have IV access tw2 during this emergency room visit. Administered Medications: 08:31 Drug: Amoxicillin 500 mg Route: PO; tw2 08:51 Follow up: Response: No adverse reaction tw2 08:31 Drug: Viscous Lidocaine Liquid (4 %) 5 ml Route: Mucous Membrane; tw2 08:31 Drug: Highland 10 mg-325 mg 1 tabs {Note: RASS 0.} Route: PO; tw2 08:51 Follow up: Response: No adverse reaction; Pain is unchanged, physician notified; RASS: tw2 Alert and Calm (0) Outcome: 08:27 Discharge ordered by . carlyle 08:52 Discharged to home ambulatory. tw2 08:52 Condition: stable 08:52 Discharge instructions given to patient, Instructed on discharge instructions, follow up and referral plans. medication usage, Demonstrated understanding of instructions, follow-up care, medications, Prescriptions given X 3. 08:52 Patient left the ED. tw2 Signatures: Magnus Wolf MD MD cha Ballard, Brenda RN RN bb Tianna Hartman RN RN tw2 Shahid Shukla cl3
[2020-05-23] MEDS ORDERED: LIDOCAINE VISCOUS 2% SOLN 15 ML UDC ONE (08:46)
[2020-05-23] MEDS ORDERED: HYDROCODONE/APAP 10/325 TAB ONE (08:46)
[2020-05-23] MEDS ORDERED: AMOXICILLIN TRIHYDR 250 MG CAP ONE (08:46)
[2020-05-23 09:57] VITALS: TEMP 98; O2SAT 100
[2020-05-23 09:58] VITALS: BP 143/93
== END 2020-05-23 08:52 | disposition home or self-care (01) ==
LOC: ER 06:42
DX: K05.10 Chronic gingivitis, plaque induced (principal); F17.210 Nicotine dependence, cigarettes, uncomplicated; Z88.8 Allergy status to other drugs, medicaments and biological substances
CPT/HCPCS: 99283

== ENCOUNTER 2020-10-28 06:07 | Emergency (ER) | payer SELFPAY ==
--- OUTSIDE RECORDS SUMMARY | 2020-10-28 06:09 | XMS REPORT | Continuity of Care Document ---
:1975 Author Organization [facility] t Address [address] [place] [address] [address]. [address] [place] [address] Care Team Providers Name Role Phone Danilo [...] Department ID 2018-11-11 2018-12-03 Office Santos Carrasco [facility] [id number] 16:10:03 12:11:53 Visit SPECIALTY [id number] CARE [id number] CENTER AT [phone] ÁLVARO Deal [facility] Results This patient has no known results.
[2020-10-28 07:06] LABS: Absolute Lymphocytes (CBC) 1.8 K/uL (0.7-4.9); Basophils % 0.3 % (0-1.3); Hematocrit 42.9 % (39.6-49.0); Lymphocytes % 12.4 % (15.3-44.8); MPV 7.2 fL (7.6-11.3); RBC Red Blood Cell Count 5.06 M/uL (4.33-5.43)
[2020-10-28] MEDS ORDERED: ONDANSETRON 4 MG/2 ML VIAL ONE ×2 (07:18→08:54)
[2020-10-28] MEDS ORDERED: KETOROLAC 30 MG/ML INJ ONE (07:18)
[2020-10-28] MEDS ORDERED: NA CHLORIDE 0.9% 500 ML ONE (07:18)
[2020-10-28 07:22] LABS: Bilirubin Direct 0.2 mg/dL (0-0.2); Bilirubin Total 0.7 mg/dL (0.2-1.0); Potassium 3.4 mmol/L (3.5-5.1); Protein, Total 7.5 g/dL (6.4-8.2)
--- NOTE | 2020-10-28 07:22 | RAD REPORT ---
EXAM DESCRIPTION: CT - Stone Protocol - 10/28/2020 7:07 am CLINICAL HISTORY: FLANK PAIN COMPARISON: No comparisons FINDINGS: No acute findings within the lower chest. Circumferential thickening of the distal esophag us may reflect esophagitis. Heart size is normal. No pericardial effusion. No focal liver lesions. The gallbladder is unremarkable. Adrenal glands unremarkable. The pancreas is unremarkable. Mild left-sided hydronephrosis secondary to a 3 millimeter stone in the left distal ur eter. Normal appendix. No bowel obstruction. Bladder is decompressed. Fat containing inguinal hernias . No retroperitoneal lymphadenopathy. IMPRESSION: Mild left-sided hydronephrosis secondary to a 3 millimeter stone in the left distal uret er.
--- NOTE | 2020-10-28 08:15 | ER ---
Nurse's Notes [facility] Name: Laura Hernandez Age: 45 yrs Sex: Male : 1975 Arrival Date: 10/28/2020 Time: 06:09 Bed 7 Private MD: Diagnosis: Hydronephrosis with renal and ureteral calculous obstruction Presentation: 10/28 06:48 Chief complaint: Patient states: he started having severe left flank pain about an hour bb ago the pain radiates to his groin and is 10/10. Coronavirus screen: At this time, the client does not indicate any symptoms associated with coronavirus-19. Ebola Screen: No symptoms or risks identified at this time. Initial Sepsis Screen: Does the patient meet any 2 criteria? No. Patient's initial sepsis screen is negative. Does the patient have a suspected source of infection? No. Patient's initial sepsis screen is negative. Risk Assessment: Do you want to hurt yourself or someone else? Patient reports no desire to harm self or others. Onset of symptoms was October 28, 2020. 06:48 Method Of Arrival: Ambulatory bb 06:48 Acuity: MARIA LUZ 3 bb Historical: - Allergies: 06:50 Pepto-Bismol; bb - Home Meds: 06:50 None [Active]; bb - PMHx: 06:50 None; bb - PSHx: 06:50 jaw surgery; bb - Immunization history:: Adult Immunizations up to date, Client reports having NOT received the Covid vaccine. - Social history:: Smoking status: Patient reports the use of cigarette tobacco products, smokes one-half pack cigarettes per day, Patient/guardian denies using alcohol, street drugs. Screenin:01 Abuse screen: Denies threats or abuse. Nutritional screening: No deficits noted. ea Tuberculosis screening: No symptoms or risk factors identified. Fall Risk None identified. Assessment: 07:00 General: Appears uncomfortable, Behavior is restless. Pain: Complains of pain in ea pelvis. Neuro: Level of Consciousness is awake, alert, obeys commands, Oriented to person, place, time. Cardiovascular: Patient's skin is warm and dry. Respiratory: Reports Airway is patent Respiratory effort is even, unlabored, Respiratory pattern is regular, symmetrical. GI: Abdomen is flat. Derm: Skin is pink, warm \T\ dry. 08:37 Reassessment: Patient appears in no apparent distress at this time. Patient and/or ph family updated on plan of care and expected duration. Pain level reassessed. Patient is alert, oriented x 3, equal unlabored respirations, skin warm/dry/pink. Pt requesting pain medication prior to d/c, ERP notified, see MAR, will monitor pt after administration of IV narcotics. Vital Signs: 06:48 BP 145 / 102; Pulse 85; Resp 20 S; Temp 97.6(O); Pulse Ox 99% on R/A; Weight 90.72 kg bb (R); Height 5 ft. 9 in. (175.26 cm) (R); Pain 10/10; 07:30 BP 142 / 95; Pulse 84; Resp 18; Pulse Ox 100% on R/A; ph 08:37 BP 137 / 89; Pulse 82; Resp 18; Temp 97.9; Pulse Ox 99% on R/A; ph 09:05 BP 139 / 91; Pulse 81; Resp 19; Temp 97.9; Pulse Ox 98% on R/A; ph 06:48 Body Mass Index 29.53 (90.72 kg, 175.26 cm) bb ED Course: 06:09 Patient arrived in ED. wm 06:48 [facility]. jr8 06:48 Alberto Salazar MD is Attending Physician. jr8 06:50 Triage completed. bb 06:50 Arm band placed on Patient placed in an exam room, on a stretcher, on pulse oximetry. bb 07:01 Patient has correct armband on for positive identification. Bed in low position. Call ea light in reach. Side rails up X2. 07:01 Inserted saline lock: 20 gauge in right antecubital area, using aseptic technique. ea Blood collected. 07:07 CT Stone Protocol In Process Unspecified. EDMS 07:15 Sue Howard, THIAGO is Primary Nurse. ph 08:14 Jozef Collado MD is Referral Physician. jr8 08:39 No provider procedures requiring assistance completed. ph 09:04 IV discontinued, intact, bleeding controlled, No redness/swelling at site. Pressure ph dressing applied. Administered Medications: 06:59 Drug: Ketorolac 15 mg Route: IVP; Site: right antecubital; ea 07:19 Follow up: Response: No adverse reaction ph 06:59 Drug: Zofran (Ondansetron) 4 mg Route: IVP; Site: right antecubital; ea 07:19 Follow up: Response: No adverse reaction ph 07:00 Drug: NS 0.9% 500 ml Route: IV; Rate: bolus; Site: right antecubital; ea 09:04 Follow up: Response: No adverse reaction; IV Status: Completed infusion; IV Intake: ph 500ml 08:35 Drug: morphine 4 mg Route: IVP; Site: right antecubital; ph 09:05 Follow up: Response: No adverse reaction; Pain is decreased; RASS: Alert and Calm (0) ph Intake: 09:04 IV: 500ml; Total: 500ml. ph Outcome: 08:14 Discharge ordered by MD. damon 09:04 Discharged to home ambulatory. ph 09:04 Condition: good 09:04 Discharge instructions given to patient, Instructed on discharge instructions, follow up and referral plans. medication usage, Demonstrated understanding of instructions, follow-up care, medications, Prescriptions given X 3. 09:06 Patient left the ED. ph Signatures: Dispatcher [employer] EDMS Charley Irizarry RN RN bb Roszak, Josh, PA PA jrSue Glasgow RN RN ph Antunez, Elena, RN RN ea Marsh, Wendy wm Corrections: (The following items were deleted from the chart) 09:04 09:04 Response: No adverse reaction; Pain is decreased; RASS: Alert and Calm (0); IV ph Status: Completed infusion; IV Intake: 500ml ph
--- NOTE | 2020-10-28 08:15 | EDPHYS ---
Physician Documentation [facility] Name: Laura Hernandez Age: 45 yrs Sex: Male : 1975 Arrival Date: 10/28/2020 Time: 06:09 Bed 7 Private MD: ED Physician Alberto Salazar HPI: 10/28 07:35 This 45 yrs old Male presents to ER via Ambulatory with complaints of jr8 Possible Kidney Stone. 07:35 The patient complains of pain in the left flank. The pain radiates to the abdomen. jr8 Onset: The symptoms/episode began/occurred acutely, today. Modifying factors: The symptoms are alleviated by nothing. the symptoms are aggravated by movement, palpation/percussion. Associated signs and symptoms: The patient has no apparent associated signs or symptoms. Severity of pain: At its worst the pain was moderate in the emergency department the pain is unchanged. The patient has not experienced similar symptoms in the past. The patient has not recently seen a physician. Patient stated that he woke up this morning with sudden onset left flank pain radiating to the lower abdomen and left testicle. Denies trauma.. Historical: - Allergies: 06:50 Pepto-Bismol; bb - Home Meds: 06:50 None [Active]; bb - PMHx: 06:50 None; bb - PSHx: 06:50 jaw surgery; bb - Immunization history:: Adult Immunizations up to date, Client reports having NOT received the Covid vaccine. - Social history:: Smoking status: Patient reports the use of cigarette tobacco products, smokes one-half pack cigarettes per day, Patient/guardian denies using alcohol, street drugs. ROS: 07:35 Eyes: Negative for injury, pain, redness, and discharge, ENT: Negative for injury, jr8 pain, and discharge, Neck: Negative for injury, pain, and swelling, Cardiovascular: Negative for chest pain, palpitations, and edema, Respiratory: Negative for shortness of breath, cough, wheezing, and pleuritic chest pain, MS/Extremity: Negative for injury and deformity, Skin: Negative for injury, rash, and discoloration, Neuro: Negative for headache, weakness, numbness, tingling, and seizure. 07:35 Abdomen/GI: Positive for abdominal pain. 07:35 Back: Positive for flank pain, on the left. Exam: 07:35 Cardiovascular: Regular rate and rhythm with a normal S1 and S2. No gallops, murmurs, jr8 or rubs. Normal PMI, no JVD. No pulse deficits. Respiratory: Lungs have equal breath sounds bilaterally, clear to auscultation and percussion. No rales, rhonchi or wheezes noted. No increased work of breathing, no retractions or nasal flaring. Skin: Warm, dry with normal turgor. Normal color with no rashes, no lesions, and no evidence of cellulitis. MS/ Extremity: Pulses equal, no cyanosis. Neurovascular intact. Full, normal range of motion. Neuro: Awake and alert, GCS 15, oriented to person, place, time, and situation. Cranial nerves II-XII grossly intact. Motor strength 5/5 in all extremities. Sensory grossly intact. Cerebellar exam normal. Normal gait. 07:35 Constitutional: The patient appears alert, awake, in obvious pain, uncomfortable. 07:35 Abdomen/GI: Inspection: abdomen appears normal, Bowel sounds: active, all quadrants, Palpation: soft, in all quadrants, moderate abdominal tenderness, in the anterior aspect of left lateral abdomen and left lower quadrant, mass, is not appreciated, rebound tenderness, is not appreciated, voluntary guarding, is not appreciated, involuntary guarding, is not appreciated, no appreciated organomegaly, Indicators: McBurney's point is not tender, Dowling's sign is negative, Rovsing's sign is negative, Liver: tenderness, is not appreciated. 07:35 Back: ROM is normal, normal spinal alignment noted, CVA tenderness, that is mild, is noted on the left, vertebral tenderness, is not appreciated, muscle spasm, is not present. Vital Signs: 06:48 BP 145 / 102; Pulse 85; Resp 20 S; Temp 97.6(O); Pulse Ox 99% on R/A; Weight 90.72 kg bb (R); Height 5 ft. 9 in. (175.26 cm) (R); Pain 10/10; 07:30 BP 142 / 95; Pulse 84; Resp 18; Pulse Ox 100% on R/A; ph 08:37 BP 137 / 89; Pulse 82; Resp 18; Temp 97.9; Pulse Ox 99% on R/A; ph 09:05 BP 139 / 91; Pulse 81; Resp 19; Temp 97.9; Pulse Ox 98% on R/A; ph 06:48 Body Mass Index 29.53 (90.72 kg, 175.26 cm) bb MDM: 06:48 Patient medically screened. jr8 08:13 Data reviewed: vital signs, nurses notes, lab test result(s), radiologic studies, CT jr8 scan. Data interpreted: Pulse oximetry: on room air is 99 %. Interpretation: normal. Counseling: I had a detailed discussion with the patient and/or guardian regarding: the historical points, exam findings, and any diagnostic results supporting the discharge/admit diagnosis, lab results, radiology results, the need for outpatient follow up, a urologist, to return to the emergency department if symptoms worsen or persist or if there are any questions or concerns that arise at home. Response to treatment: the patient's symptoms have markedly improved after treatment. ED course: Unable to urinate. Pain markedly improved. No increase in renal function. No fever, otherwise hemodynamically stable. Return precautions given. Otherwise will follow up with urology.. 10/28 06:49 Order name: Basic Metabolic Panel; Complete Time: 07:10/28 06:49 Order name: CBC with Diff; Complete Time: 07:10/28 06:49 Order name: Hepatic Function; Complete Time: 10/28 06:49 Order name: Lipase; Complete Time: 07:10/28 06:49 Order name: CT Stone Protocol; Complete Time: 07:10/28 06:49 Order name: IV Saline Lock; Complete Time: 0659 10/28 06:49 Order name: Labs collected and sent; Complete Time: 06: Administered Medications: 06:59 Drug: Ketorolac 15 mg Route: IVP; Site: right antecubital; ea 07:19 Follow up: Response: No adverse reaction ph 06:59 Drug: Zofran (Ondansetron) 4 mg Route: IVP; Site: right antecubital; ea 07:19 Follow up: Response: No adverse reaction ph 07:00 Drug: NS 0.9% 500 ml Route: IV; Rate: bolus; Site: right antecubital; ea 09:04 Follow up: Response: No adverse reaction; IV Status: Completed infusion; IV Intake: ph 500ml 08:35 Drug: morphine 4 mg Route: IVP; Site: right antecubital; ph 09:05 Follow up: Response: No adverse reaction; Pain is decreased; RASS: Alert and Calm (0) ph Disposition Summary: 10/28/20 08:14 Discharge Ordered Location: Home jr8 Problem: new jr8 Symptoms: have improved jr8 Condition: Stable jr8 Diagnosis - Hydronephrosis with renal and ureteral calculous obstruction jr8 Followup: jr8 - With: Jozef Collado MD - When: 5 - 6 days - Reason: Recheck today's complaints, Continuance of care, Re-evaluation by your physician Discharge Instructions: - Discharge Summary Sheet jr8 - Kidney Stones jr8 - Hydronephrosis jr8 Forms: - Medication Reconciliation Form jr8 - Thank You Letter jr8 - Antibiotic Education jr8 - Prescription Opioid Use jr8 Prescriptions: - acetaminophen-codeine 300-15 mg Oral tablet - take 2 tablet by ORAL route every 6 hours As needed as needed; 20 tablet; jr8 Refills: 0, Product Selection Permitted - tamsulosin 0.4 mg Oral capsule - take 1 capsule by ORAL route Every night; 7 capsule; Refills: 0, Product jr8 Selection Permitted - Zofran 4 mg Oral Tablet - take 1 tablet by ORAL route every 12 hours As needed; 20 tablet; Refills: 0, jr8 Product Selection Permitted Addendum: 10/29/2020 19:01 Co-signature as Attending Physician, Alberto mccarty Signatures: Dispatcher [employer] Alberto Shannon MD MD pkl Ballard, Brenda RN RN Maurilio Oneal PA PA jr8 Sue Howard RN RN Maria L Canales RN RN chepe
[2020-10-28] MEDS ORDERED: MORPHINE 4 MG/ML SYR ONE (08:54)
[2020-10-28 09:18] VITALS: TEMP 97.9
[2020-10-28 09:19] VITALS: BP 139/91; O2SAT 98
== END 2020-10-28 09:06 | disposition home or self-care (01) ==
LOC: ER 06:07
DX: N13.2 Hydronephrosis with renal and ureteral calculous obstruction (principal); F17.210 Nicotine dependence, cigarettes, uncomplicated; Z88.8 Allergy status to other drugs, medicaments and biological substances
CPT/HCPCS: 36415; 74176; 76377; 80048; 80076; 83690; 85025; 96361; 96374; 96375; 99284; J2405; J7040

== ENCOUNTER 2021-11-29 14:01 | Emergency (ER) | payer SELFPAY ==
--- OUTSIDE RECORDS SUMMARY | 2021-11-29 14:04 | XMS REPORT | Continuity of Care Document ---
:1975 Author Organization [facility] t Address [address] [place] [address] Care Team Providers Name Role Phone Santos Carrasco MD Attending Clinician Hollie Valdovinos DO Attending Clinician Johnathan Grady MD Attending Clinician Payers Payer Name Policy Type Policy Number Effective Date Expiration Date S ource Problems Condition Condition Condition Status Onset Resolution Last Treating Co mments Source Name Details Category Date Date Treatment Clinician Date Mandible Mandible Disease Active Unive rs fracture fracture 10-11 ity of 00:00: [place] 00 Medical Branch Closed Closed Disease Active Overview: Univer s fracture fracture 10-11 Added ity of of left of left 00:00: automatic [place] side of side of 00 ally from Medic al mandible, mandible, request Bra [facility] unspecifie unspecifie for d d surgery mandibular mandibular [id number] site, site, initial initial encounter encounter Allergies, Adverse Reactions, Alerts Allergy Allergy Status Severity Reaction(s) Onset Inactive Treating Comm ents Source Name Type Date Date Clinician Deedee Kang Active Other - See Break out Univers Subsalic ty to comments 10-11 in welps ity of ylate adverse 00:00: [place] reaction 00 Medical s Branch Social History Social Habit Start Date Stop Date Quantity Comments Source Alcohol intake [facility] History [facility] Alcohol [facility] Std Drinks Medical Branch History [facility] Alcohol [facility] Binge [facility] Sex Assigned At [facility] Medical Branch Cigarette pack-years 2018-11-11 2018-11-11 [facility] 00:00:00 00:00:00 Medical Branch History SDOH Alcohol 2018-11-11 2018-11-11 1 [facility] Frequency 00:00:00 00:00:00 Medical Branch Cigarettes smoked 2018-11-11 2018-11-11 [facility] current (pack per 00:00:00 00:00:00 Medical Branch day) - Reported Smoking Status Start Date Stop Date Source Current every day smoker 2018-11-11 00:00:00 [facility] Medical Branch Medications Ordered Filled Start Stop Current Ordering Indication Dosage Frequency Signature Comments Components Source Medication Medication Date Date Medication? Clinician (SIG) Name Name chlorhexidi 2019- No 15mL Unive rs ne 11-11 ity of (PERIDEX) 23:00: 22:17 [place] 0.12 % 00 :00 Medical mouthwash Branch 15 mL chlorhexidi 2019- No 15mL 15 mL, Uni vers ne 11-11 Oral ity of (PERIDEX) 23:00: 22:17 ([place] 0.12 % 00 :00 Spit Out), Medical mouthwash ONCE, 1 Branch 15 mL dose, 11/11/18 at 1800, Routine chlorhexidi 2019- No 15mL Unive rs ne 11-11 ity of (PERIDEX) 23:00: 22:17 [place] 0.12 % 00 :00 Medical mouthwash Branch 15 mL chlorhexidi 2019- No 15mL 15 mL, Uni vers ne 11-11 Oral ity of (PERIDEX) 23:00: 22:17 ([place] 0.12 % 00 :00 Spit Out), Medical mouthwash ONCE, 1 Branch 15 mL dose, 11/11/18 at 1800, Routine chlorhexidi 2019- No 15mL Unive rs ne 11-11 ity of (PERIDEX) 23:00: 22:17 [place] 0.12 % 00 :00 Medical mouthwash Branch 15 mL chlorhexidi 2018- 2019- No 15mL 15 mL, Uni vers ne 11-11 Oral ity of (PERIDEX) 23:00: 22:17 ([place] 0.12 % 00 :00 Spit Out), Medical mouthwash ONCE, 1 Branch 15 mL dose, 11/11/18 at 1800, Routine chlorhexidi 2018-0 Yes [id number] 15mL [place] [facility] ne 8-14 spit out ity of (PERIDEX) 00:00: 15 mL 2 [place] 0.12 % 00 (two) Medical mouthwash times Branch daily. chlorhexidi 2018- Yes [id number] 15mL [place] [facility] ne 8-14 spit out ity of (PERIDEX) 00:00: 15 mL 2 [place] 0.12 % 00 (two) Medical mouthwash times Branch daily. chlorhexidi Yes [id number] 15mL [place] [facility] ne 8-14 spit out ity of (PERIDEX) 00:00: 15 mL 2 [place] 0.12 % 00 (two) Medical mouthwash times Branch daily. traMADol 2019- No 50mg 50 mg, Univer s (ULTRAM) 11-09 Oral, ity of tablet 50 07:15: 19:14 ONCE, 1 [place] mg 00 :00 dose, [facility] 11/09/18 at Branch 0215, Routine HYDROcodone Yes [id number] 15mL Take 15 mL Univers -acetaminop 7-20 by mouth ity of hen 7.5-325 00:00: every 4 [place] as mg/15 mL 00 (four) Medical solution hours as Branch needed for Pain (scale 7-10). HYDROcodone 2018- Yes [id number] 15mL Take 15 mL Univers -acetaminop 7-20 by mouth ity of hen 7.5-325 00:00: every 4 [place] as mg/15 mL 00 (four) Medical solution hours as Branch needed for Pain (scale 7-10). HYDROcodone 2018-0 Yes [id number] 15mL Take 15 mL Univers -acetaminop 7-20 by mouth ity of hen 7.5-325 00:00: every 4 [place] as mg/15 mL 00 (four) Medical solution hours as Branch needed for Pain (scale 7-10). HYDROcodone 2018-0 Yes [id number] 15mL Take 15 mL Univers -acetaminop 7-20 by mouth ity of hen 7.5-325 00:00: every 4 [place] as mg/15 mL 00 (four) Medical solution hours as Branch needed for Pain (scale 7-10). HYDROcodone 2019-0 Yes [id number] 15mL Take 15 mL Univers -acetaminop 7-20 by mouth ity of hen 7.5-325 00:00: every 4 [place] as mg/15 mL 00 (four) Medical solution hours as Branch needed for Pain (scale 7-10). HYDROcodone 2019-0 Yes [id number] 15mL Take 15 mL Univers -acetaminop 7-20 by mouth ity of hen 7.5-325 00:00: every 4 [place] as mg/15 mL 00 (four) Medical solution hours as Branch needed for Pain (scale 7-10). ondansetron 2019-0 Yes [id number] 4mg Take 1 Univers (ZOFRAN 7-16 tablet by ity of ODT) 4 mg 00:00: mouth [place] disintegrat 00 every 8 Medic al ing tablet (eight) Branch hours as needed for Nausea and Vomiting (N/V). chlorhexidi 2019-0 Yes [id number] 15mL [place] [facility] ne 0.12 % 7-16 spit out ity of mouthwash 00:00: 15 mL 3 [place] 00 (three) Medical times Branch daily. docusate 2019-0 Yes [id number] 100mg Take 1 U nivers 100 mg 7-16 capsule by ity of capsule 00:00: mouth [place] 00 daily. Medical Branch ondansetron 2019-0 Yes [id number] 4mg Take 1 Univers (ZOFRAN 7-16 tablet by ity of ODT) 4 mg 00:00: mouth [place] disintegrat 00 every 8 Medic al ing tablet (eight) Branch hours as needed for Nausea and Vomiting (N/V). chlorhexidi 2019-0 Yes [id number] 15mL [place] [facility] Univers ne 0.12 % 7-16 spit out ity of mouthwash 00:00: 15 mL 3 [place] 00 (three) Medical times Branch daily. docusate 2019-0 Yes [id number] 100mg Take 1 U nivers 100 mg 7-16 capsule by ity of capsule 00:00: mouth [place] 00 daily. Medical Branch ondansetron 2019-0 Yes [id number] 4mg Take 1 Univers (ZOFRAN 7-16 tablet by ity of ODT) 4 mg 00:00: mouth [place] disintegrat 00 every 8 Medic al ing tablet (eight) Branch hours as needed for Nausea and Vomiting (N/V). chlorhexidi 2019-0 Yes [id number] 15mL [place] [facility] ne 0.12 % 7-16 spit out ity of mouthwash 00:00: 15 mL 3 [place] 00 (three) Medical times Branch daily. docusate 2019-0 Yes [id number] 100mg Take 1 U nivers 100 mg 7-16 capsule by ity of capsule 00:00: mouth [place] 00 daily. Medical Branch ondansetron 2019-0 Yes [id number] 4mg Take 1 Univers (ZOFRAN 7-16 tablet by ity of ODT) 4 mg 00:00: mouth [place] disintegrat 00 every 8 Medic al ing tablet (eight) Branch hours as needed for Nausea and Vomiting (N/V). chlorhexidi 2019-0 Yes [id number] 15mL [place] [facility] ne 0.12 % 7-16 spit out ity of mouthwash 00:00: 15 mL 3 [place] 00 (three) Medical times Branch daily. docusate 2019-0 Yes [id number] 100mg Take 1 U nivers 100 mg 7-16 capsule by ity of capsule 00:00: mouth [place] 00 daily. Medical Branch ondansetron 2019-0 Yes [id number] 4mg Take 1 Univers (ZOFRAN 7-16 tablet by ity of ODT) 4 mg 00:00: mouth [place] disintegrat 00 every 8 Medic al ing tablet (eight) Branch hours as needed for Nausea and Vomiting (N/V). chlorhexidi 2019-0 Yes [id number] 15mL [place] [facility] Univers ne 0.12 % 7-16 spit out ity of mouthwash 00:00: 15 mL 3 [place] 00 (three) Medical times Branch daily. docusate 2019-0 Yes [id number] 100mg Take 1 U nivers 100 mg 7-16 capsule by ity of capsule 00:00: mouth [place] 00 daily. Medical Branch ondansetron 2019-0 Yes [id number] 4mg Take 1 Univers (ZOFRAN 7-16 tablet by ity of ODT) 4 mg 00:00: mouth [place] disintegrat 00 every 8 Medic al ing tablet (eight) Branch hours as needed for Nausea and Vomiting (N/V). chlorhexidi 2019-0 Yes [id number] 15mL [place] [facility] ne 0.12 % 7-16 spit out ity of mouthwash 00:00: 15 mL 3 [place] 00 (three) Medical times Branch daily. docusate 2019-0 Yes [id number] 100mg Take 1 U nivers 100 mg 7-16 capsule by ity of capsule 00:00: mouth [place] 00 daily. Medical Branch Vital Signs Vital Name Observation Time Observation Value Comments Source Systolic blood 2018-11-11 21:23:00 123 mm[Hg] Univer sity of pressure [facility] Branch Diastolic blood 2018-11-11 21:23:00 78 mm[Hg] Unive rsity of pressure [facility] Branch Heart rate 2018-11-11 21:23:00 86 /min Universi ty of [facility] Body temperature 2018-11-11 21:23:00 36.17 Patricia [facility] ersity of [facility] Body height 2018-11-11 21:23:00 175.3 cm Universi ty of [facility] Branch Body weight 2018-11-11 21:23:00 84.369 kg Universi ty of [facility] Branch BMI 2018-11-11 21:23:00 27.47 kg/m2 Universi ty of [facility] Branch Systolic blood 2018-11-11 21:23:00 123 mm[Hg] Univer sity of [facility] Branch Diastolic blood 2018-11-11 21:23:00 78 mm[Hg] Unive rsity of [facility] Branch Heart rate 2018-11-11 21:23:00 86 /min Universi ty of [facility] Body temperature 2018-11-11 21:23:00 36.17 Patricia [facility] ersity of [facility] Branch Body height 2018-11-11 21:23:00 175.3 cm Universi ty of [facility] Body weight 2018-11-11 21:23:00 84.369 kg Universi ty of [facility] Branch BMI 2018-11-11 21:23:00 27.47 kg/m2 Universi ty of [facility] Branch Systolic blood 2018-11-09 06:00:00 124 mm[Hg] Univer sity of pressure [facility] Branch Diastolic blood 2018-11-09 06:00:00 86 mm[Hg] Unive rsity of pressure [facility] Branch Heart rate 2018-11-09 06:00:00 84 /min [facility] Respiratory rate 2018-11-09 06:00:00 16 /min [facility] Oxygen saturation in 2018-11-09 06:00:00 96 /min [facility] Arterial blood by [facility] Pulse oximetry [place] Body temperature 2018-11-09 04:59:00 36.56 Patricia [facility] Body height 2018-11-09 04:58:00 175.3 cm [facility] Body weight 2018-11-09 04:58:00 85.276 kg [facility] BMI 2018-11-09 04:58:00 27.76 kg/m2 [facility] Procedures This patient has no known procedures. Encounters Start End Encounter Admission Attending Care Care Encounter Source Date/Time Date/Time Type Type Clinicians Facility Department ID 2018-11-11 2018-12-03 Office Santos Carrasco [id number] 16:10:03 12:11:53 Visit SPECIALTY [id number] CARE [id number] CENTER AT [id number] [address] 2018-11-11 2018-12-03 Office Santos Carrasco [id number] [facility] 16:10:03 12:11:53 Visit SPECIALTY [id number] it[id number] [place] [phone] [address] [place] [address] 2018-11-09 2018-11-09 Emergency Hollie Valdovinos TRAUMA [id number] Univers 00:04:08 01:21:00 Hollie Valdovinos CENTER [id number] [id number] [place] [id number] [facility] [address] [place] 2018-11-02 2018-11-02 Telephone Santos Carrasco [id number] Univers 00:00:00 00:00:00 SPECIALTY [id number] ity [place] C[place] [id number] [place] AT [id number] [address] 2018-10-31 2018-10-31 Telephone TOREY Grady [id number] Univers 00:00:00 00:00:00 Johnathan Benitez SPECIALTY [id number] ity of CARE [id number] [facility] AT [phone] [address] Results This patient has no known results.
[2021-11-29 14:36] LABS: Absolute Lymphocytes (CBC) 1.2 K/uL (0.7-4.9); Hematocrit 46.1 % (39.6-49.0); Lymphocytes % 11.4 % (15.3-44.8); MCV 87.4 fL (80-100); MPV 7.6 fL (7.6-11.3); RBC Red Blood Cell Count 5.27 M/uL (4.33-5.43)
[2021-11-29 14:53] LABS: SARS-CoV-2 Antigen Rapid Res Negative (Negative)
[2021-11-29 14:54] LABS: Potassium 3.5 mmol/L (3.5-5.1); Troponin High Sensitivity 5.5 pg/mL (<58.9)
--- NOTE | 2021-11-29 15:29 | RAD REPORT ---
EXAM DESCRIPTION: RAD - Chest Single View - 11/29/2021 3:17 pm CLINICAL HISTORY: CHEST PAIN Chest pain. COMPARISON: No comparisons FINDINGS: Portable technique limits examination quality. The lungs are grossly clear. The heart is normal in size. No displaced fractures. IMPRESSION: No acute intrathoracic process suspected.
--- NOTE | 2021-11-29 15:31 | RAD REPORT ---
EXAM DESCRIPTION: US - Scrotum Testicles - 11/29/2021 3:07 pm CLINICAL HISTORY: Right testicle mass Pain and swelling COMPARISON: No comparisons FINDINGS: The right testicle 3.4 x 3.0 x 2.3 cm. No intratesticular masses or evidence of testicular torsion. The left testicle 2.9 x 2.9 x 2.9 cm.. No intratesticular masses or evidence of testicular torsion. The right epididymis appears enlarged and is significantly heterogenous. Increased blood flow also li fatimah present. Small bilateral hydroceles. IMPRESSION: No intratesticular mass or evidence of testicular torsion. Significantly enlarged right epididymis with increased blood flow may indicate epididymitis.
[2021-11-29] MEDS ORDERED: LIDOCAINE 1% MPF 2 ML AMPULE ONE (16:01)
[2021-11-29] MEDS ORDERED: CEFTRIAXONE 500 MG/VIAL ONE (16:01)
--- NOTE | 2021-11-29 16:02 | EDPHYS ---
Physician Documentation [facility] Name: Laura Hernandez Age: 46 yrs Sex: Male : 1975 Arrival Date: 11/29/2021 Time: 14:05 Bed 3 Private MD: ED Physician Kendall Steen HPI: 11/29 15:44 This 46 yrs old Male presents to ER via EMS with complaints of Chest Pain. ms3 15:44 46-year-old male with no past medical history presents for chest pain that he rates ms3 4/10 and describes it as burning. Patient states the pain began earlier today. Patient denies nausea, vomiting, shortness of breath. Patient endorses diaphoresis. Patient denies alleviating or inciting factors.. Historical: - Allergies: 14:06 Pepto-Bismol; vg1 - Home Meds: 14:06 None [Active]; vg1 - PMHx: 14:06 None; vg1 - PSHx: 14:06 jaw surgery; vg1 - Immunization history:: Client reports having NOT received the Covid vaccine. - Social history:: Smoking status: Patient reports the use of cigarette tobacco products, smokes one-half pack cigarettes per day. ROS: 15:44 Constitutional: Negative for fever, and chills. ENT: Negative for injury, pain, and ms3 discharge, Neck: Negative for injury, pain, and swelling. 15:44 Back: Negative for injury and pain, MS/Extremity: Negative for injury and deformity, Skin: Negative for injury, rash, and discoloration, Neuro: Negative for headache, weakness, numbness, tingling. Psych: Negative for depression, anxiety, suicide ideation, homicidal ideation, and hallucinations. 15:44 Cardiovascular: Positive for chest pain. 15:44 : Positive for testicular pain 15:44 All other systems are negative. Exam: 14:02 ECG was reviewed by the Attending Physician. ms3 15:44 Constitutional: This is a well developed, well nourished patient who is awake, alert, ms3 and in no acute distress. Head/Face: Normocephalic, atraumatic. Neck: Trachea midline, no cervical lymphadenopathy. Supple, full range of motion without nuchal rigidity, or vertebral point tenderness. No Meningismus. Chest/axilla: Normal chest wall appearance and motion. Nontender with no deformity. Cardiovascular: Regular rate and rhythm with a normal S1 and S2. No gallops, murmurs, or rubs. Normal PMI, no JVD. No pulse deficits. Respiratory: Lungs have equal breath sounds bilaterally, clear to auscultation and percussion. No rales, rhonchi or wheezes noted. No increased work of breathing, no retractions or nasal flaring. Abdomen/GI: Soft, non-tender, with normal bowel sounds. No distension or tympany. No guarding or rebound. No evidence of tenderness throughout. Back: No spinal tenderness. No costovertebral tenderness. Full range of motion. Skin: Warm, dry with normal turgor. Normal color with no rashes, no lesions, and no evidence of cellulitis. 15:44 : Male external genitalia: tenderness, of the right testicle is noted, of the epididymis area, Mass/Induration of epididymis. Vital Signs: 13:55 BP 153 / 104; Pulse 93; Resp 15; Temp 97.5(TE); Pulse Ox 99% on R/A; Weight 92.99 kg; vg1 Height 5 ft. 9 in. (175.26 cm); Pain 5/10; 15:17 BP 148 / 99; Pulse 97; Resp 15; Pulse Ox 99% on R/A; vg1 16:04 BP 150 / 97; Pulse 79; Resp 19; Pulse Ox 100% on R/A; em6 13:55 Body Mass Index 30.27 (92.99 kg, 175.26 cm) vg1 MDM: 14:18 Patient medically screened. ms3 15:44 Differential diagnosis: abnormal EKG, acute myocardial infarction, coronary artery ms3 disease Testicular CA vs Epididymitis. HEART Score: History: Slightly Suspicious (0), ECG: Normal (0), Age: > 45 and < 65 years (1), Risk Factors: No Risk Factors Known (0), Troponin: < or = 1 x Normal Limit (0), Total Score = 1. The patient was not given aspirin in the Emergency Department. Administered by EMS. Data reviewed: vital signs, nurses notes, lab test result(s), EKG, radiologic studies, and as a result, I will discharge patient. Data interpreted: telemetry monitor: rate is 85 beats/min, rhythm is normal sinus rhythm, regular, with no ectopy, Interpretation: normal rate, normal rhythm, Pulse oximetry: on room air is 99 %. Interpretation: normal. Counseling: I had a detailed discussion with the patient and/or guardian regarding: the historical points, exam findings, and any diagnostic results supporting the discharge/admit diagnosis, lab results, radiology results, the need for outpatient follow up, smoking cessation. Refusal of service: The patient/guardian displays adequate decision making capability and despite a detailed discussion of alternatives, benefits, risks, and consequences refuses: all lab tests, Repeat troponin. ED course: Discussed obtaining second troponin with patient. Patient declines as his symptoms have improved. Patient to follow up with cardiology within 48 hours. Patient understands agrees with plan. All questions were answered. Return precautions discussed include worsening symptoms, or any other concerns. On reevaluation patient symptoms improved, patient is alert and oriented x4, in no apparent distress, nontoxic appearing.. 11/29 14:18 Order name: SARS RAPID; Complete Time: 14:58 ss 11/29 14:19 Order name: Basic Metabolic Panel; Complete Time: 14:58 ms3 11/29 14:19 Order name: CBC with Diff; Complete Time: 14:58 ms3 11/29 14:19 Order name: Troponin HS; Complete Time: 14:58 ms3 11/29 14:19 Order name: XRAY Chest (1 view); Complete Time: 15:36 ms3 11/29 14:19 Order name: US Scrotum Testicles; Complete Time: 15:36 ms3 11/29 14:19 Order name: EKG; Complete Time: 14:20 ms3 11/29 14:19 Order name: Cardiac monitoring; Complete Time: 14:35 ms3 11/29 14:19 Order name: EKG - Nurse/Tech; Complete Time: 14:36 ms3 11/29 14:19 Order name: IV Saline Lock; Complete Time: 14:35 ms3 11/29 14:19 Order name: Labs collected and sent; Complete Time: 14:35 ms3 11/29 14:19 Order name: O2 Per Protocol; Complete Time: 14:35 ms3 11/29 14:19 Order name: O2 Sat Monitoring; Complete Time: 14:35 ms3 EC:02 Rate is 86 beats/min. Rhythm is regular. Right axis deviation noted. QRS interval is ms3 normal. Clinical impression: NSR w/ Non-specific ST/T Changes. Interpreted by me. Reviewed by me. Administered Medications: 15:58 Drug: Rocephin (cefTRIAXone) 500 mg Route: IM; Site: right gluteus; vg1 16:23 Follow up: Response: No adverse reaction vg1 Disposition Summary: 11/29/21 16:01 Discharge Ordered Location: Home ms3 Condition: Stable ms3 Diagnosis - Chest pain, unspecified ms3 - Testicular pain ms3 - Epididymitis ms3 Followup: ms3 - With: - When: 2 - 3 days - Reason: Recheck today's complaints, Re-evaluation by your physician Followup: ms3 - With: - When: 48 Hours - Reason: Recheck today's complaints, Re-evaluation by your physician Discharge Instructions: - Discharge Summary Sheet ms3 - Nonspecific Chest Pain, Adult ms3 - Epididymitis ms3 Forms: - Medication Reconciliation Form ms3 - Thank You Letter ms3 - Antibiotic Education ms3 - Prescription Opioid Use ms3 Prescriptions: - Doxycycline Hyclate 100 mg Oral Tablet - take 1 tablet by ORAL route every 12 hours; 20 tablet; Refills: 0, Product ms3 Selection Permitted Signatures: Dispatcher [employer] Faith Rubi, THIAGO RN vg1 Kendall Steen DO DO ms3
--- NOTE | 2021-11-29 16:02 | ER ---
Nurse's Notes [facility] Name: Laura Hernandez Age: 46 yrs Sex: Male : 1975 Arrival Date: 11/29/2021 Time: 14:05 Bed 3 Private MD: Diagnosis: Chest pain, unspecified;Testicular pain;Epididymitis Presentation: 11/29 13:55 Chief complaint: EMS states: Left sided Chest pain that began earlier today that vg1 radiates to Left shoulder. 13:55 Coronavirus screen: Vaccine status: Patient reports being unvaccinated. Client denies vg1 travel out of the [place] in the last 14 days. Ebola Screen: Patient denies exposure to infectious person. Patient denies travel to an Ebola-affected area in the 21 days before illness onset. Initial Sepsis Screen: Does the patient meet any 2 criteria? No. Patient's initial sepsis screen is negative. Does the patient have a suspected source of infection? No. Patient's initial sepsis screen is negative. Risk Assessment: Do you want to hurt yourself or someone else? Patient reports no desire to harm self or others. Onset of symptoms was November 29, 2021. 13:55 Method Of Arrival: EMS: [facility] vg1 13:55 Acuity: MARIA LUZ 2 vg1 Triage Assessment: 13:55 General: Appears in no apparent distress. uncomfortable, Behavior is calm, cooperative. vg1 Pain: Complains of pain in anterior aspect of left upper chest Pain radiates to Left shoulder Pain currently is 5 out of 10 on a pain scale. Pain began "earlier today". EENT: No signs and/or symptoms were reported regarding the EENT system. Neuro: Level of Consciousness is awake, alert, obeys commands, Oriented to person, place, time, situation, Denies blurred vision dizziness, headache. Cardiovascular: Patient's skin is warm and dry. Respiratory: Airway is patent Respiratory effort is even, unlabored, Denies shortness of breath. GI: Abdomen is round non-distended, Patient currently denies nausea, vomiting. : No signs and/or symptoms were reported regarding the genitourinary system. Derm: Skin is pink, warm \\T\\ dry. Musculoskeletal: Circulation, motion, and sensation intact. Historical: - Allergies: 14:06 Pepto-Bismol; vg1 - Home Meds: 14:06 None [Active]; vg1 - PMHx: 14:06 None; vg1 - PSHx: 14:06 jaw surgery; vg1 - Immunization history:: Client reports having NOT received the Covid vaccine. - Social history:: Smoking status: Patient reports the use of cigarette tobacco products, smokes one-half pack cigarettes per day. Screenin:08 Abuse screen: Denies threats or abuse. Nutritional screening: No deficits noted. vg1 Tuberculosis screening: No symptoms or risk factors identified. Fall Risk No fall in past 12 months (0 pts). No secondary diagnosis (0 pts). IV access (20 points). Ambulatory Aid- None/Bed Rest/Nurse Assist (0 pts). Gait- Normal/Bed Rest/Wheelchair (0 pts) Mental Status- Oriented to own ability (0 pts). Total Ortiz Fall Scale indicates No Risk (0-24 pts). Assessment: 14:08 Reassessment: SEE TRIAGE. vg1 15:19 Reassessment: Patient appears in no apparent distress at this time. No changes from vg1 previously documented assessment. Patient and/or family updated on plan of care and expected duration. Pain level reassessed. Patient is alert, oriented x 3, equal unlabored respirations, skin warm/dry/pink. 16:23 Reassessment: Patient appears in no apparent distress at this time. No changes from vg1 previously documented assessment. Patient and/or family updated on plan of care and expected duration. Pain level reassessed. Patient is alert, oriented x 3, equal unlabored respirations, skin warm/dry/pink. Patient states feeling better. Vital Signs: 13:55 BP 153 / 104; Pulse 93; Resp 15; Temp 97.5(TE); Pulse Ox 99% on R/A; Weight 92.99 kg; vg1 Height 5 ft. 9 in. (175.26 cm); Pain 5/10; 15:17 BP 148 / 99; Pulse 97; Resp 15; Pulse Ox 99% on R/A; vg1 16:04 BP 150 / 97; Pulse 79; Resp 19; Pulse Ox 100% on R/A; em6 13:55 Body Mass Index 30.27 (92.99 kg, 175.26 cm) vg1 ED Course: 13:55 Arm band placed on. vg1 14:05 Patient arrived in ED. vg1 14:05 Kendall Steen DO is Attending Physician. ms3 14:06 Triage completed. vg1 14:08 Patient has correct armband on for positive identification. Placed in gown. Bed in low vg1 position. Call light in reach. Side rails up X 1. Client placed on continuous cardiac and pulse oximetry monitoring. NIBP monitoring applied. 14:08 Patient maintains SpO2 saturation greater than 95% on room air. vg1 14:36 EKG done, by ED staff. tp1 15:09 US Scrotum Testicles In Process Unspecified. EDMS 15:11 XRAY Chest (1 view) In Process Unspecified. EDMS 15:16 Faith Bateman, RN is Primary Nurse. vg1 16:01 Jozef Collado MD is Referral Physician. ms3 16:01 Josué Gaston MD is Referral Physician. ms3 16:23 No provider procedures requiring assistance completed. IV discontinued, intact, vg1 bleeding controlled, No redness/swelling at site. Pressure dressing applied. Administered Medications: 15:58 Drug: Rocephin (cefTRIAXone) 500 mg Route: IM; Site: right gluteus; vg1 16:23 Follow up: Response: No adverse reaction vg1 Medication: 14:09 VIS not applicable for this client. vg1 Outcome: 16:01 Discharge ordered by . ms3 16:23 Discharged to home ambulatory. vg1 16:23 Condition: good 16:23 Discharge instructions given to patient, Instructed on discharge instructions, follow up and referral plans. medication usage, Demonstrated understanding of instructions, follow-up care, medications, Prescriptions given X 1. 16:23 Patient left the ED. vg1 Signatures: Dispatcher [employer] EDMS Faith Bateman, RN RN vg1 Kendall Steen DO DO ms3 Loretta Copeland RN RN tp1 Kim Lopez, RN RN em6
[2021-11-29 17:13] VITALS: BP 150/97; O2SAT 100
--- NOTE | 2021-11-30 07:21 | EKG ---
Test Date: 2021-11-29 Test Time: 14:02:10 Drilling Assistant: JAVIER MEASUREMENT RESULTS: Intervals: Rate: 86 MN: 186 QRSD: 82 QT: 372 QTc: 445 [place]: P: 63 MN: 186 QRS: 97 T: 67 INTERPRETIVE STATEMENTS: Normal sinus rhythm Rightward axis Borderline ECG Compared to ECG 01/14/2000 13:42:00 Sinus bradycardia no longer present Sinus arrhythmia no longer present Electronically Signed On 11-30-21 07:18:37 CDT by Manjit Rivera
== END 2021-11-29 16:23 | disposition home or self-care (01) ==
LOC: ER 14:01
DX: R07.9 Chest pain, unspecified (principal); N50.811 Right testicular pain; N45.1 Epididymitis; F17.210 Nicotine dependence, cigarettes, uncomplicated; Z88.8 Allergy status to other drugs, medicaments and biological substances
CPT/HCPCS: 36415; 71045; 76870; 80048; 84484; 85025; 87811; 93005; 96372; 99284; J0696

== ENCOUNTER 2022-08-27 12:09 | Emergency (ER) | payer OTHER, SELFPAY ==
--- OUTSIDE RECORDS SUMMARY | 2022-08-27 12:14 | XMS REPORT | Continuity of Care Document ---
:1975 Author Organization [facility] t Address [address] [place] [address] Care Team Providers Name Role Phone Santos [...] al mandible, mandible, request [facility] unspecifie unspecifie for d d surgery mandibular mandibular [id number] site, site, initial initial encounter encounter Allergies, [...] Stop Date Quantity Comments Source Alcohol intake [facility] History SDOH Alcohol [facility] Std Drinks Medical Branch History [facility] Alcohol [facility] Binge Medical [place] Sex Assigned At [facility] Medical Branch Cigarette pack-years 2018-11-11 2018-11-11 [facility] 00:00:00 00:00:00 Medical Branch History SDOH Alcohol 2018-11-11 2018-11-11 1 [facility] Frequency 00:00:00 00:00:00 Medical Branch Cigarettes smoked 2018-11-11 2018-11-11 [facility] current (pack per 00:00:00 00:00:00 Medical Branch day) - Reported Smoking Status Start Date Stop Date Source Current every day smoker 2018-11-11 00:00:00 [facility] Medical Branch Medications Ordered Filled Start Stop Current Ordering Indication Dosage Frequency Signature Comments Components Source Medication Medication Date Date Medication? Clinician (SIG) Name Name chlorhexidi 2018- 2019- No 15mL Unive rs ne 11-11 ity of (PERIDEX) 23:00: 22:17 [place] 0.12 % 00 :00 Medical mouthwash Branch 15 mL chlorhexidi 2018- 2019- No 15mL 15 mL, Uni vers ne 11-11 Oral ity of (PERIDEX) 23:00: 22:17 ([place] 0.12 % 00 :00 Spit Out), Medical mouthwash ONCE, 1 Branch 15 mL dose, Fri11/11/18 at 1800, Routine chlorhexidi 2018- 2019- No 15mL Unive rs ne 11-11 ity of (PERIDEX) 23:00: 22:17 [place] 0.12 % 00 :00 Medical mouthwash Branch 15 mL chlorhexidi 2018- 2019- No 15mL 15 mL, Uni vers ne 11-11 Oral ity of (PERIDEX) 23:00: 22:17 ([place] 0.12 % 00 :00 Spit Out), Medical mouthwash ONCE, 1 Branch 15 mL dose, Fri11/11/18 at 1800, Routine chlorhexidi 2018- 2019- No 15mL Unive rs ne 11-11 ity of (PERIDEX) 23:00: 22:17 [place] 0.12 % 00 :00 Medical mouthwash Branch 15 mL chlorhexidi 2018-0 2019- No 15mL 15 mL, Uni vers ne 11-11 Oral ity of (PERIDEX) 23:00: 22:17 ([place] 0.12 % 00 :00 Spit Out), Medical mouthwash ONCE, 1 Branch 15 mL dose, 11/11/18 at 1800, Routine chlorhexidi 2018-0 Yes [id number] 15mL [place] [facility] ne 8-14 spit out ity of (PERIDEX) 00:00: 15 mL 2 [place] 0.12 % 00 (two) Medical mouthwash times Branch daily. chlorhexidi 2018- Yes [id number] 15mL [place] [facility] Univers ne 8-14 spit out ity of (PERIDEX) 00:00: 15 mL 2 [place] 0.12 % 00 (two) Medical mouthwash times Branch daily. chlorhexidi Yes [id number] 15mL [place] [facility] Univers ne 8-14 spit out ity of (PERIDEX) 00:00: 15 mL 2 [place] 0.12 % 00 (two) Medical mouthwash times Branch daily. traMADol 2019- No 50mg 50 mg, Univer s (ULTRAM) 11-09 Oral, ity of tablet 50 07:15: 19:14 ONCE, 1 [place] mg 00 :00 dose, [facility] 11/09/18 at Branch 0215, Routine HYDROcodone Yes [id number] 15mL Take 15 mL Univers -acetaminop 7-20 by mouth ity of hen 7.5-325 00:00: every 4 [place] as mg/15 mL 00 (four) Medical solution hours as Branch needed for Pain (scale 7-10). HYDROcodone 2018- Yes [id number] 15mL Take 15 mL Univers -acetaminop 7-20 by mouth ity of hen 7.5-325 00:00: every 4 [place] as mg/15 mL 00 (four) Medical solution hours as Branch needed for Pain (scale 7-10). HYDROcodone 2018-0 Yes [id number] 15mL Take 15 mL Univers -acetaminop 7-20 by mouth ity of hen 7.5-325 00:00: every 4 [place] as mg/15 mL 00 (four) Medical solution hours as Branch needed for Pain (scale 7-10). HYDROcodone 2018-0 Yes [id number] 15mL Take 15 mL Univers -acetaminop 7-20 by mouth ity of hen 7.5-325 00:00: every 4 [place] as mg/15 mL 00 (four) Medical solution hours as Branch needed for Pain (scale 7-10). HYDROcodone 2019-0 Yes [id number] 15mL Take 15 mL Univers -acetaminop 7-20 by mouth ity of hen 7.5-325 00:00: every 4 [place] as mg/15 mL 00 (four) Medical solution hours as Branch needed for Pain (scale 7-10). HYDROcodone 2019-0 Yes [id number] 15mL Take 15 mL Univers -acetaminop 7-20 by mouth ity of hen 7.5-325 00:00: every 4 [place] as mg/15 mL 00 (four) Medical solution hours as Branch needed for Pain (scale 7-10). ondansetron 2019-0 Yes [id number] 4mg Take 1 Univers (ZOFRAN 7-16 tablet by ity of ODT) 4 mg 00:00: mouth [place] disintegrat 00 every 8 Medic al ing tablet (eight) Branch hours as needed for Nausea and Vomiting (N/V). chlorhexidi 2019-0 Yes [id number] 15mL [place] and Univers ne 0.12 % 7-16 spit out ity of mouthwash 00:00: 15 mL 3 [place] 00 (three) Medical times Branch daily. docusate 2019-0 Yes [id number] 100mg Take 1 U nivers 100 mg 7-16 capsule by ity of capsule 00:00: mouth [place] 00 daily. Medical Branch ondansetron 2018-0 Yes [id number] 4mg Take 1 Univers (ZOFRAN 7-16 tablet by ity of ODT) 4 mg 00:00: mouth [place] disintegrat 00 every 8 Medic al ing tablet (eight) Branch hours as needed for Nausea and Vomiting (N/V). chlorhexidi 2019-0 Yes [id number] 15mL [place] and Univers ne 0.12 % 7-16 spit out ity of mouthwash 00:00: 15 mL 3 [place] 00 (three) Medical times Branch daily. docusate 2019-0 Yes [id number] 100mg Take 1 U nivers 100 mg 7-16 capsule by ity of capsule 00:00: mouth [place] 00 daily. Medical Branch ondansetron 2019-0 Yes [id number] 4mg Take 1 Univers (ZOFRAN 7-16 tablet by ity of ODT) 4 mg 00:00: mouth [place] disintegrat 00 every 8 Medic al ing tablet (eight) Branch hours as needed for Nausea and Vomiting (N/V). chlorhexidi 2019-0 Yes [id number] 15mL [place] and Univers ne 0.12 % 7-16 spit out ity of mouthwash 00:00: 15 mL 3 [place] 00 (three) Medical times Branch daily. docusate 2019-0 Yes [id number] 100mg Take 1 U nivers 100 mg 7-16 capsule by ity of capsule 00:00: mouth [place] 00 daily. Medical Branch ondansetron 2019-0 Yes [id number] 4mg Take 1 Univers (ZOFRAN 7-16 tablet by ity of ODT) 4 mg 00:00: mouth [place] disintegrat 00 every 8 Medic al ing tablet (eight) Branch hours as needed for Nausea and Vomiting (N/V). chlorhexidi 2019-0 Yes [id number] 15mL [place] and Univers ne 0.12 % 7-16 spit out ity of mouthwash 00:00: 15 mL 3 [place] 00 (three) Medical times Branch daily. docusate 2019-0 Yes [id number] 100mg Take 1 U nivers 100 mg 7-16 capsule by ity of capsule 00:00: mouth [place] 00 daily. Medical Branch ondansetron 2019-0 Yes [id number] 4mg Take 1 Univers (ZOFRAN 7-16 tablet by ity of ODT) 4 mg 00:00: mouth [place] disintegrat 00 every 8 Medic al ing tablet (eight) Branch hours as needed for Nausea and Vomiting (N/V). chlorhexidi 2019-0 Yes [id number] 15mL [place] and Univers ne 0.12 % 7-16 spit out ity of mouthwash 00:00: 15 mL 3 [place] 00 (three) Medical times Branch daily. docusate 2019-0 Yes [id number] 100mg Take 1 U nivers 100 mg 7-16 capsule by ity of capsule 00:00: mouth [place] 00 daily. Medical Branch ondansetron 2019-0 Yes [id number] 4mg Take 1 Univers (ZOFRAN 7-16 tablet by ity of ODT) 4 mg 00:00: mouth [place] disintegrat 00 every 8 Medic al ing tablet (eight) Branch hours as needed for Nausea and Vomiting (N/V). chlorhexidi 2019-0 Yes [id number] 15mL [place] and Univers ne 0.12 % 7-16 spit out ity of mouthwash 00:00: 15 mL 3 [place] 00 (three) Medical times Branch daily. docusate 0 Yes [id number] 100mg Take 1 U nivers 100 mg 7-16 capsule by ity of capsule 00:00: mouth [place] 00 daily. Medical Branch Vital Signs Vital Name Observation Time Observation Value Comments Source Systolic blood 2018-11-11 21:23:00 123 mm[Hg] Univer sity of pressure [facility] Branch Diastolic blood 2018-11-11 21:23:00 78 mm[Hg] Unive rsity of [facility] Branch Heart rate 2018-11-11 21:23:00 86 /min Universi ty of [facility] Body temperature 2018-11-11 21:23:00 36.17 [facility] ersity [facility] Body height 2018-11-11 21:23:00 175.3 cm Universi ty of [facility] Branch Body weight 2018-11-11 21:23:00 84.369 kg Universi ty of [facility] Branch BMI 2018-11-11 21:23:00 27.47 kg/m2 Universi ty of [facility] Branch Systolic blood 2018-11-11 21:23:00 123 mm[Hg] Univer sity of pressure [facility] Branch Diastolic blood 2018-11-11 21:23:00 78 mm[Hg] Unive rsity of [facility] Branch Heart rate 2018-11-11 21:23:00 86 /min Universi ty of [facility] Body temperature 2018-11-11 21:23:00 36.17 [facility] ersity [facility] Branch Body height 2018-11-11 21:23:00 175.3 cm [facility] Body weight 2018-11-11 21:23:00 84.369 kg [facility] BMI 2018-11-11 21:23:00 27.47 kg/m2 Universi ty of [facility] Branch Systolic blood 2018-11-09 06:00:00 124 mm[Hg] Univer sity of pressure [facility] Branch Diastolic blood 2018-11-09 06:00:00 86 mm[Hg] Unive rsity of pressure [facility] Branch Heart rate 2018-11-09 06:00:00 84 /min [facility] Respiratory rate 2018-11-09 06:00:00 16 /min [facility] Oxygen saturation in 2018-11-09 06:00:00 96 /min [facility] Arterial blood by [facility] Pulse oximetry [place] Body temperature 2018-11-09 04:59:00 36.56 [facility] Body height 2018-11-09 04:58:00 175.3 cm [facility] Body weight 2018-11-09 04:58:00 85.276 kg [facility] BMI 2018-11-09 04:58:00 27.76 kg/m2 [facility] Procedures This patient has no known procedures. Encounters Start End Encounter Admission Attending Care Care Encounter Source Date/Time Date/Time Type Type Clinicians Facility Department ID 2018-11-11 2018-12-03 Office Santos Carrasco [id number] 16:10:03 12:11:53 Visit SPECIALTY [id number] CARE [id number] CENTER AT [phone] [address] 2018-11-11 2018-12-03 Office Santos Carrasco [id number] [facility] 16:10:03 12:11:53 Visit SPECIALTY [id number] [id number] [phone] [address] 2018-11-09 2018-11-09 Emergency Hollie Valdovinos TRAUMA [id number] Univers 00:04:08 01:21:00 Hollie Valdovinos CENTER [id number] [id number] [id number] [facility] 014 Branch 2018-11-02 2018-11-02 Telephone Santos Carrasco [id number] Univers 00:00:00 00:00:00 SPECIALTY [id number] [id number] [phone] [address] 2018-10-31 2018-10-31 Telephone [facility] [id number] Univers 00:00:00 00:00:00 Johnathan Benitez SPECIALTY [id number] ity of CARE [id number] [facility] AT [phone] [address] Results This patient has no known results.
--- NOTE | 2022-08-27 12:44 | RAD REPORT ---
EXAM DESCRIPTION: IVORY TREJO - 08/27/2022 12:33 pm CLINICAL HISTORY: FB, r/o fx COMPARISON: No comparisons TECHNIQUE: Left hand, 3 views. FINDINGS: Metallic foreign body, nail shaped, traverses the midshaft proximal phalanx second digit, with comminuted fractures, do not appear to reach the articular surfaces. There is no dislocation or periosteal reaction noted. Joint alignment is maintained. No foreign body or other soft tissue abnormality. IMPRESSION: Comminuted fractures along the midshaft proximal phalanx second digit, related to metall ic foreign body traversing the shaft. Fractures do not appear to reach the articular surfaces.
[2022-08-27] MEDS ORDERED: TETANUS & DIPHTHERIA TOX,ADULT 0.5 ML VIAL ONE (12:53)
[2022-08-27] MEDS ORDERED: LIDOCAINE 1% 20 ML MDV ONE (12:53)
--- NOTE | 2022-08-27 13:12 | ER ---
Nurse's Notes [facility] Name: Laura Hernandez Age: 47 yrs Sex: Male : 1975 Arrival Date: 08/27/2022 Time: 12:09 Bed 12 Private MD: Diagnosis: Comminuted fracture proximal phalanx second digit due to FB Presentation: 08/27 12:50 Chief complaint: Patient states: NAIL IN FIRST FINGER LEFT HAND. Coronavirus screen: At iw this time, the client does not indicate any symptoms associated with coronavirus-19. 12:50 Method Of Arrival: Ambulatory iw 12:51 Ebola Screen: No symptoms or risks identified at this time. Initial Sepsis Screen: Does iw the patient meet any 2 criteria? No. Patient's initial sepsis screen is negative. Does the patient have a suspected source of infection? No. Patient's initial sepsis screen is negative. Risk Assessment: Do you want to hurt yourself or someone else? Patient reports no desire to harm self or others. Onset of symptoms was August 27, 2022 at 12:00. 12:51 Acuity: MARIA LUZ 3 iw Triage Assessment: 12:52 General: Appears in no apparent distress. Behavior is calm, cooperative, appropriate iw for age. Pain: Complains of pain in left hand. EENT: No deficits noted. Neuro: No deficits noted. Cardiovascular: No deficits noted. Respiratory: No deficits noted. GI: No signs and/or symptoms were reported involving the gastrointestinal system. : No signs and/or symptoms were reported regarding the genitourinary system. Derm: No deficits noted. Musculoskeletal: No deficits noted. Injury Description: Foreign body is located left hand. Historical: - Allergies: 12:52 bismuth subsalicylate; iw - Home Meds: 12:52 None [Active]; iw - PMHx: 12:52 None; iw - PSHx: 12:52 jaw surgery; iw - Immunization history:: Adult Immunizations up to date, Last tetanus immunization: unknown. - Social history:: Smoking status: unknown. Screenin:02 [facility] ED Fall Risk Assessment (Adult) History of falling in the last 3 months, bp including since admission No falls in past 3 months (0 pts). Abuse screen: Denies threats or abuse. Denies injuries from another. Nutritional screening: No deficits noted. Tuberculosis screening: No symptoms or risk factors identified. Assessment: 14:34 Reassessment: REPORT TO RAFAEL DAS TO [facility] ER. TRANSPORT PENDING. iw 16:02 Reassessment: EMS AT B/S FOR TRANSPORT. bp Vital Signs: 12:51 BP 151 / 76; Pulse 71; Resp 16; Temp 98; Pulse Ox 99% ; iw ED Course: 12:11 Patient arrived in ED. mr 12:12 Cierra Roy FNP-C [facility] kb 12:12 Josh Rosado MD is Attending Physician. kb 12:35 Hand Left 3 View XRAY In Process Unspecified. EDMS 12:51 Triage completed. iw 12:53 Arm band placed on. iw 13:05 Inserted saline lock: 20 gauge in right antecubital area, using aseptic technique. iw Blood collected. 13:10 Marino Christianson is Hospitalizing Provider. kb 14:14 initiated transfer to [facility] ER. bd 16:01 Kwan Durant RN is Primary Nurse. bp 16:02 Patient has correct armband on for positive identification. Bed in low position. Call bp light in reach. Side rails up X2. 16:02 No provider procedures requiring assistance completed. Patient transferred, IV remains bp in place. Administered Medications: 12:50 Drug: Tetanus-Diphtheria Toxoid IM Adult 0.5 ml {Lottery Office Manager: [employer]. Exp: iw 09/08/2023. Lot #: [id number]. } Route: IM; Site: right deltoid; 16:02 Follow up: Response: No adverse reaction bp 12:50 Drug: Lidocaine Infiltration (1 %) 1 vials Volume: 5 ml; Route: Infiltration; iw 13:32 Drug: ceFAZolin IVPB 1 grams Route: IVPB; Site: right antecubital; iw 16:03 Follow up: IV Status: Completed infusion bp 13:32 Drug: morphine IVP or IV 4 mg Route: IVP; Infused Over: 4 mins; Site: right antecubital;iw 16:03 Follow up: Response: No adverse reaction bp 13:32 Drug: Ondansetron IVP 4 mg Route: IVP; Site: right antecubital; iw 16:03 Follow up: Response: No adverse reaction bp 13:34 Drug: NS 0.9% IV 1000 ml Route: IV; Rate: 1000 ml; Site: right antecubital; iw 16:03 Follow up: IV Status: Completed infusion; IV Intake: 1000ml bp 15:01 Drug: morphine IVP or IV 4 mg Route: IVP; Infused Over: 4 mins; Site: right antecubital;bp 16:02 Follow up: Response: No adverse reaction bp Intake: 16:03 IV: 1000ml; Total: 1000ml. bp Outcome: 13:11 Decision to Hospitalize by Provider. kb 14:18 ER care complete, transfer ordered by MD. kb 16:03 Patient left the ED. bp Signatures: Dispatcher [employer] EDMS Cierra Roy, REJI-C BACK HANGER-Ckb Beth Mayer, Lilliam mr Maggi Owens, RN RN iw Kwan Durant RN RN bp Corrections: (The following items were deleted from the chart) 12:51 12:50 Chief complaint: Patient states: NAIL IN FIRST FINGER RIGHT HAND iw iw
--- NOTE | 2022-08-27 13:13 | EDPHYS ---
Physician Documentation [facility] Name: Laura Hernandez Age: 47 yrs Sex: Male : 1975 Arrival Date: 08/27/2022 Time: 12:09 Bed 12 Private MD: ED Physician Josh Rosado HPI: 08/27 13:09 This 47 yrs old Male presents to ER via Ambulatory with complaints of Nail In finger. kb 13:11 The patient or guardian reports the patient has a suspected foreign body, of the left kb second digit. The reported likely foreign body is a nail. Onset: The symptoms/episode began/occurred just prior to arrival. Current symptoms: foreign body sensation, pain. Treatment Prior to Arrival: none. The patient has not experienced similar symptoms in the past. The patient has not recently seen a physician. Pt was using a nailgun and accidentally shot a nail through left index finger. . Historical: - Allergies: 12:52 bismuth subsalicylate; iw - Home Meds: 12:52 None [Active]; iw - PMHx: 12:52 None; iw - PSHx: 12:52 jaw surgery; iw - Immunization history:: Adult Immunizations up to date, Last tetanus immunization: unknown. - Social history:: Smoking status: unknown. ROS: 13:07 Constitutional: Negative for fever, chills, and weight loss. kb 13:07 MS/extremity: Positive for pain, puncture, of the dorsal aspect of proximal phalanx of left index finger, foreign body. 13:07 All other systems are negative. Exam: 13:07 Constitutional: This is a well developed, well nourished patient who is awake, alert, kb and in no acute distress. Head/Face: Normocephalic, atraumatic. ENT: Moist Mucous membranes Cardiovascular: Regular rate and rhythm with a normal S1 and S2. No gallops, murmurs, or rubs. No pulse deficits. Respiratory: Respirations even and unlabored. No increased work of breathing. Talking in full sentences Neuro: Awake and alert, GCS 15, oriented to person, place, time, and situation. Moves all extremities. Normal gait. 13:07 Musculoskeletal/extremity: Extremities: grossly normal except: noted in the dorsal aspect of proximal phalanx of left index finger: pain, puncture, foreign body, ROM: limited active range of motion due to pain, Circulation is intact in all extremities. Sensation intact. Vital Signs: 12:51 BP 151 / 76; Pulse 71; Resp 16; Temp 98; Pulse Ox 99% ; iw MDM: 12:18 Patient medically screened. kb 13:08 Data reviewed: vital signs, nurses notes. Consideration of Admission/Observation kb Patient was admitted/placed on observation. Management of patient was discussed with the following: Hospitalist: Enrike accepts pt under Dr Christianson. Clerk To Justice: Dr De Oliveira consulted, will take pt to OR . Counseling: I had a detailed discussion with the patient and/or guardian regarding: the historical points, exam findings, and any diagnostic results supporting the discharge/admit diagnosis, radiology results, the need for further work-up and treatment in the hospital. 13:09 ED course: differential diagnosis: superficial FB, fracture, puncture. kb 14:05 ED course: Dr De Oliveira called back and recommended transfer of pt due to OR kb availability. Transfer initiated to [place]. 14:16 ED course: Discussed case with Dr Mason at [place]. Accepts pt for transfer. kb 08/27 13:07 Order name: CBC with Diff; Complete Time: 13:51 kb 08/27 13:07 Order name: Basic Metabolic Panel; Complete Time: 14:00 kb 08/27 12:18 Order name: Hand Left 3 View XRAY; Complete Time: 12:46 kb 08/27 13:07 Order name: IV Start; Complete Time: 13:32 kb 08/27 13:07 Order name: NPO; Complete Time: 13:20 kb Administered Medications: 12:50 Drug: Tetanus-Diphtheria Toxoid IM Adult 0.5 ml {Motivational Speaker: [employer]. Exp: iw 09/08/2023. Lot #: [id number]. } Route: IM; Site: right deltoid; 16:02 Follow up: Response: No adverse reaction bp 12:50 Drug: Lidocaine Infiltration (1 %) 1 vials Volume: 5 ml; Route: Infiltration; iw 13:32 Drug: ceFAZolin IVPB 1 grams Route: IVPB; Site: right antecubital; iw 16:03 Follow up: IV Status: Completed infusion bp 13:32 Drug: morphine IVP or IV 4 mg Route: IVP; Infused Over: 4 mins; Site: right antecubital;iw 16:03 Follow up: Response: No adverse reaction bp 13:32 Drug: Ondansetron IVP 4 mg Route: IVP; Site: right antecubital; iw 16:03 Follow up: Response: No adverse reaction bp 13:34 Drug: NS 0.9% IV 1000 ml Route: IV; Rate: 1000 ml; Site: right antecubital; iw 16:03 Follow up: IV Status: Completed infusion; IV Intake: 1000ml bp 15:01 Drug: morphine IVP or IV 4 mg Route: IVP; Infused Over: 4 mins; Site: right antecubital;bp 16:02 Follow up: Response: No adverse reaction bp Disposition Summary: 08/27/22 14:18 Transfer Ordered Transfer Location: [facility] kb Reason: Higher level of care kb Condition: Stable(08/27/22 14:18) kb Problem: new(08/27/22 14:18) kb Symptoms: are unchanged(08/27/22 14:18) kb Accepting Physician: Marlon(08/27/22 16:03) bp Diagnosis - Comminuted fracture proximal phalanx second digit due to FB kb Forms: - Medication Reconciliation Form kb - SBAR form kb Signatures: Dispatcher [employer] EDMS Cierra Roy, REJI-C BILLPOSTER-Maggi Butler, RN Umesh Branham MD MD rn Peltier, Brian RN RN bp Corrections: (The following items were deleted from the chart) 14:17 13:11 Observation kb kb 14:17 13:11 Marino Christianson kb kb 14:17 13:11 Telemetry/MedSurg (observation) kb kb 14:17 13:11 Stable kb kb 14:17 13:11 new kb kb 14:17 13:11 are unchanged kb kb 14:17 13:11 Standard kb kb 14:17 13:11 kb kb 14:17 13:11 Comminuted fracture proximal left phalanx second digit, left hand secondary to FB kb kb 16:03 14:18 Mason kb bp
[2022-08-27] MEDS ORDERED: MORPHINE 4 MG/ML SYR ONE ×2 (13:30→15:05)
[2022-08-27] MEDS ORDERED: CEFAZOLIN SODIUM 1 GM/VIAL ONE (13:30)
[2022-08-27] MEDS ORDERED: ONDANSETRON 4 MG/2 ML VIAL ONE (13:31)
[2022-08-27] MEDS ORDERED: NA CHLORIDE 0.9% 1,000 ML ONE (13:31)
[2022-08-27 13:49] LABS: Hematocrit 47.7 % (39.6-49.0); MCV 88.1 fL (80-100); MPV 7.6 fL (7.6-11.3); RBC Red Blood Cell Count 5.41 M/uL (4.33-5.43)
[2022-08-27 13:55] LABS: Potassium 5.1 mEq/L (3.5-5.1)
[2022-08-27 16:23] VITALS: BP 151/76; TEMP 98; O2SAT 99
== END 2022-08-27 16:03 | disposition short-term general hospital (02) ==
LOC: ER 12:09
DX: S62.611A Displaced fracture of proximal phalanx of left index finger, initial encounter for closed fracture (principal); W45.0XXA Nail entering through skin, initial encounter; Z23 Encounter for immunization; Z88.8 Allergy status to other drugs, medicaments and biological substances
CPT/HCPCS: 96365; 85025; 80048; 36415; 73130; 90471; 90714; 96375; 99284; 96366; J2001; J2405; J7030; J0690